=== PATIENT | male | born 1985 | race Caucasian/White ===

== ENCOUNTER 2017-10-27 06:09 | Inpatient (IN) | payer MEDICARE, MEDICAID ==
[2017-10-27] MEDS ORDERED: niCARdipine 20MG In NaCl 20 MG/200 ML BAG ONE (06:14)
[2017-10-27 06:30] LABS: #Basophils 0.1 thou/uL (0.0-0.2); #Eosinphils 0.2 thou/uL (0.0-0.7); #Lymphocytes 2.5 thou/uL (1.20-3.40); #Monocytes 0.8 thou/uL (0.11-0.59); #Neutrophils 8.9 thou/uL (1.40-6.50); %Basophils 0.7 % (0.0-1.0); %Lymphocytes 19.9 % (21.0-51.0); %Monocytes 6.3 % (0.0-10.0); %Neutrophils 71.2 % (42.0-75.0); Hemoglobin 10.4 g/dL (14.0-18.0); Mean Corpuscular HGB CONC 31.9 g/dL (32.0-36.0); Mean Corpuscular Hemoglobin 28.2 pg (27.0-31.0); Mean Corpuscular Volume 88.4 fL (78.0-98.0); Mean Platelet Volume 11.1 fL (7.4-10.4); Platelet Count 237 thou/uL (130-400); RBC Distribution Width 17.7 % (11.5-14.5); Red Blood Cell (RBC) Count 3.68 mill/uL (4.70-6.10); White Blood Cell (WBC) Count 12.5 thou/uL (4.8-10.8)
[2017-10-27 06:30] LABS: Actual Bicarbonate (HCO3a) 19.5 mEq/L (22-28); Base Excess (BEa) -8.8 mEq/L (-2.0 to +3.0); CO2 Tension 52.8 mmHg (35.0-45.0); O2 Tension (PaO2) 79.1 mmHg (80.0-100.0); pH, Arterial 7.19 (7.35-7.45)
[2017-10-27 06:31] LABS: Analyzer IN Cardio ER; Carboxyhemoglobin (COHb) 1.7 gm% (0.0-3.0); Hemoglobin (Hb) 11.3 g/dL (14.0-18.0); Puncture Site RBA
[2017-10-27 06:45] LABS: ALT (SGPT) 23 U/L (8-55); AST (SGOT) 19 U/L (5-34); Alkaline Phosphatase 87 U/L (40-150); Anion Gap 25 mmol/L (10-20); BUN (Urea Nitrogen) 84 mg/dL (8.9-20.6); Bilirubin, Total 0.6 mg/dL (0.2-1.2); Calc. Creatinine Clearance 0 mL/min (70-130); Calcium 8.5 mg/dL (7.8-10.44); Carbon Dioxide 18 mmol/L (22-29); Chloride 97 mmol/L (98-107); Estimated GFR-MDRD 3; Globulin 2.7 g/dL (2.4-3.5); Glucose 144 mg/dL (70-105); Potassium 5.3 mmol/L (3.5-5.1); Protein, Total 6.7 g/dL (6.0-8.3); Sodium 135 mmol/L (136-145)
[2017-10-27] MEDS ORDERED: Piperacillin/Tazobactam 2.25 GM VIAL ONE (06:45)
[2017-10-27] MEDS ORDERED: Ondansetron HCl/PF 4 MG/2 ML Vial IVP PRN ×2 (07:00→08:52)
[2017-10-27] MEDS ORDERED: Ondansetron ODT 4 MG TAB SL PRN (07:00)
--- NOTE | 2017-10-27 08:31 | RAD ---
CHEST ONE VIEW: HISTORY: Not provided. COMPARISON: 03/12/2003 FINDINGS: There is opacification of the right lower lobe. Additionally, there are interstitial opacities in th e left perihilar region. Heart size is upper normal. There is no significant pleural fluid. No pne umothorax. IMPRESSION: Bilateral right greater than left opacities, suggesting multifocal pneumonia. Continued surveillance to ensure resolution is recommended. POS: JULY
[2017-10-27 08:35] LABS: Troponin I 0.046 ng/mL (< 0.028)
[2017-10-27] MEDS ORDERED: Ondansetron ODT 4 MG TAB PO PRN (08:52)
[2017-10-27] MEDS ORDERED: Diabetic Tussin 200 MG/10 ML UDCUP PO PRN (08:52)
[2017-10-27] MEDS ORDERED: Senokot 8.6 MG TAB PO PRN (08:52)
[2017-10-27] MEDS ORDERED: Milk Of Magnesia 30 ML UDCUP PO PRN (08:52)
[2017-10-27] MEDS ORDERED: Zolpidem Tartrate 5 MG TAB PO PRN (08:52)
[2017-10-27] MEDS ORDERED: Eucerin (Mineral Oil/Petrolatum,White) 30 gm Jar TOP PRN (08:52)
[2017-10-27] MEDS ORDERED: Mag-Al 1200 mg/1200 mg/30 ML UDCUP PO PRN (08:52)
[2017-10-27] MEDS ORDERED: Chloraseptic Spray 180 ml Bottle PO PRN (08:52)
[2017-10-27] MEDS ORDERED: Loperamide HCl 2 MG CAP PO PRN (08:52)
[2017-10-27] MEDS ORDERED: ZOSYN IVPB PRN (08:52)
[2017-10-27] MEDS ORDERED: Artificial Tears 18 DROP/0.9 ML EA EYE PRN (08:52)
[2017-10-27] MEDS ORDERED: Acetaminophen 325 MG TAB PO PRN (08:52)
[2017-10-27] MEDS ORDERED: Sodium Chloride 0.65% Nasal 44 ML BOT EA NARE PRN (08:52)
[2017-10-27] MEDS ORDERED: Loratadine 10 MG TAB PO PRN (08:52)
[2017-10-27] MEDS ORDERED: HYDROcodone/Acetaminophen 5/325 mg Tablet PO PRN (08:52)
[2017-10-27 08:54] VITALS: BMI 21.4
--- NOTE | 2017-10-27 09:14 | HP ---
PRIMARY CARE PHYSICIAN: Dr. Jony Matute. PRIMARY INSPECTOR ELEVATORS: Dr. Robert Mendez. REASON FOR ADMISSION: Acute respiratory failure, hypertensive emergency, metabolic and respiratory acidosis. HISTORY OF PRESENT ILLNESS: A 32-year-old male who has history of hypertension, end-stage renal disease on peritoneal dialysis who was brought to emergency room by paramedics for acute onset of respiratory distress. Patient reports that about 2 weeks ago, he was released from [facility] after being treated for pneumonia for 2 weeks. He reports that initially he required admission at [facility]. He was intubated for about 1 day and he required antibiotic therapy for pneumonia. When he was released, he was feeling better. Last night around 3:00 a.m., he woke up with acute onset of shortness of breath. He was diaphoretic. He was not able to take breathe. He was having vague chest discomfort. He was having nausea and mild headache. Last night, he also initiated peritoneal dialysis. As the patient was not able to breathe and that is why his mother called 911 and subsequently the patient was brought to ER. The patient was brought to the ER with the BiPAP. Before coming to the hospital , he was given 125 mg of Solu-Medrol, 1 inch nitropatch, ketamine, 2 DuoNeb. In the emergency room, the patient was tachycardic, tachypneic, and his blood pressure initially was 245/165. He appeared in respiratory distress. Blood tests showed metabolic and respiratory acidosis. His chest x-ray showed suspected pneumonia as well as pulmonary edema. After BiPAP and the patient was given blood pressure medication, the patient started feeling better. He did not want to be intubated. When I saw this patient, at that time, his blood pressure is already started improving. He is able to talk in full sentences. He is on BiPAP. He is saturating 100% with BiPAP. He denies any fever or chills. He does have dry cough. He denies any chest pain at this point. He denies any angina, constipation, diarrhea, abdominal pain. He denies any UTI symptoms. He denies any focal motor or sensory symptoms. He denies any diplopia, blurred vision, speech problem or facial asymmetry. REVIEW OF SYSTEMS: The following complete review of systems was negative, unless otherwise mentioned in the HPI or below: Constitutional: Weight loss or gain, ability to conduct usual activities. Skin: Rash, itching. Eyes: Double vision, pain. ENT/Mouth: Nose bleeding, neck stiffness, pain, tenderness. Cardiovascular: Palpitations, dyspnea on exertion, orthopnea. Respiratory: Shortness of breath, wheezing, cough, hemoptysis, fever or night sweats. Gastrointestinal: Poor appetite, abdominal pain, heartburn, nausea, vomiting, constipation, or diarrhea. Genitourinary: Urgency, frequency, dysuria, nocturia. Musculoskeletal: Pain, swelling. Neurologic/Psychiatric: Anxiety, depression. Allergy/Immunologic: Skin rash, bleeding tendency. Please see my HPI for pertinent positive and negative. All other review of systems reviewed and negative except as mentioned in the HPI. EMERGENCY ROOM COURSE: Paramedics gave him CPAP, 125 mg of Solu-Medrol 30 mg ketamine, DuoNeb x2. In our emergency room, the patient has received vancomycin , Zosyn, Levaquin 750 mg and Cardene drip, which was subsequently discontinued. PAST MEDICAL HISTORY: ESRD on peritoneal dialysis, hypertension. PAST SURGICAL HISTORY: PD catheter placement. PAST PSYCHIATRIC HISTORY: Reviewed and negative. ALLERGIES: The patient reports that one IV blood pressure medication makes him sick, probably HYDRALAZINE. FAMILY HISTORY: Father had pancreatic cancer, which was spreaded to lung and brain. No family history of stroke or coronary artery disease. SOCIAL HISTORY: Patient lives at home with his mother. He is on disability. He denies any alcohol or other illicit drug abuse. He smokes about half-pack per day. CURRENT HOME MEDICATIONS: The patient is taking a couple of blood pressure medication, but he is not able to tell the name of medication. He says that he is taking one medication 3 times a day and two medication twice a day. Once he brings medication from home, at that time, we will review. PHYSICAL EXAMINATION: VITAL SIGNS: On arrival, blood pressure 245/165, pulse 123, respiratory rate 36 , saturation 95% on BiPAP, weight 58.9 kilograms, currently blood pressure 162/ 105, pulse 98, respiratory rate 25, temperature 97.6, saturation 100% on BiPAP. GENERAL: The patient is currently in mild respiratory distress, hypertensive, no obvious acute distress. HEENT: Head: Normocephalic, atraumatic. Eyes: Pupils round, reactive to light. Extraocular muscle intact. ENT: Oropharynx within normal limits. Moist mucous membranes, no oral lesion, no pharyngeal erythema, no exudate. NECK: Supple, no thyromegaly, no carotid bruit, no obvious JVD. LUNGS: Bibasilar rales noted. No wheezing and no respiratory muscle in use. CARDIAC: S1, S2 regular, tachycardia, no murmur, no gallop, no rub. ABDOMEN: Peritoneal dialysis catheter in place. No abdominal tenderness, no peritoneal sign, no guarding, no rigidity, no rebound, no organomegaly, no mass. GENITOURINARY: Within normal limits. BACK: Unremarkable. No CVA tenderness. EXTREMITIES: Upper extremity, passive movement of all joints are normal. Lower extremity, passive movement of all joints are normal. No edema. Good distal pulsation. SKIN: No skin rash. HEMATOLOGICAL: No lymphadenopathy. PSYCHIATRIC: Normal affect. NEUROLOGIC: Nonfocal examination. SIGNIFICANT LABORATORY DATA AND IMAGING: EKG showing sinus tachycardia, nonspecific ST-T changes. Chest x-ray reported as left lower lobe and right lower lobe pneumonia. CBC: WBC 12.5, hemoglobin 10.4, platelet 237. ABG: PH 7.19, bicarbonate 19.5, CO2 52.8, O2 79.1, saturation 91.0 on BiPAP. BMP: Sodium 135, potassium 5.3, chloride 97, carbon dioxide 18, anion gap 25, BUN 84 , creatinine 20.76, glucose 144, calcium 8.5. Lactic acid 2.0. LFT: AST 19, ALT 23, alkaline phosphatase 87, albumin 4.0. ASSESSMENT AND PLAN: 1. Acute respiratory failure with hypoxia and hypercapnia on BiPAP, currently improving. The patient will require Intensive Care Unit admission. Pulmonary group will be consulted. We will continue BiPAP and closely monitor in CCU. We will try to wean off from BiPAP as tolerated. Most likely underlying pneumonia versus early pulmonary edema contributing to this patient's respiratory distress. 2. Hypertensive emergency. Patient's blood pressure was significantly high and that was contributing to his possible pulmonary edema as well as respiratory distress. The patient's blood pressure is improved after emergency room treatment. At this point, we will continue with Cardene drip as tolerated and titrate to keep blood pressure around 140 systolic. 3. Pneumonia, suspected community acquired. Patient does not have any classic history of pneumonia, but he has leukocytosis. He was recently treated at other hospital in [place] for pneumonia for 2 weeks. At this point, Pulmonary group is consulted, for benefit of doubt, we will continue with broad spectrum antibiotic therapy with vancomycin and Zosyn as per renally adjusted dose. DuoNeb therapy will be given, Mucinex 600 mg twice daily will be given. We will check viral profile, mycoplasma urine and streptococcal urine test. We will follow up on culture result. 4. End-stage renal disease on peritoneal dialysis. We will consult Dr. Mendez for maintenance of peritoneal dialysis while in hospital. 5. Anemia of renal disease. The patient will need Procrit and Nephro-Ann tablet while in hospital. 6. Metabolic acidosis, likely due to renal failure. The patient will need peritoneal dialysis. 7. Abnormal electrolytes with hyponatremia, hyperkalemia, hypochloremia and metabolic acidosis due to renal failure. We will monitor renal function test daily while in hospital. 8. Deep venous thrombosis prophylaxis, heparin 5000 units subcu twice daily. 9. Gastrointestinal prophylaxis, Protonix 40 mg p.o. daily. CODE STATUS: The patient is FULL CODE. Patient does not have any surrogate decision maker. Disposition plan based on clinical course. We are expecting patient's stay in hospital more than 2 midnights. Plan of care discussed with the patient in detail. Total time spent providing critical care to this patient in the emergency room is 35 minutes. MTDD
[2017-10-27] MEDS ORDERED: HOLD VANCOMYCIN FOR LEVEL >20 FS SCH (09:45)
[2017-10-27] MEDS ORDERED: Vancomycin HCl 750 MG in Sodium Chloride 0.9% 250 ML 250 ML IVPB SCH (09:45)
[2017-10-27] MEDS ORDERED: Vancomycin HCl 250 MG in Sodium Chloride 0.9% 100 ML IVPB SCH (09:45)
[2017-10-27] MEDS ORDERED: Vancomycin HCl 1 GM in Premix Bag 1 BAG IVPB SCH (09:45)
[2017-10-27] MEDS ORDERED: Vancomycin Sliding Scale 1 EACH FS ONE (09:45)
[2017-10-27] MEDS ORDERED: Vancomycin HCl 500 MG in Sodium Chloride 0.9% 100 ML IVPB SCH (09:45)
[2017-10-27] MEDS: Folic Acid/Vit B Comp W-C PO SCH (09:52)
[2017-10-27] MEDS: guaiFENesin ER 600 MG TAB PO SCH ×2 (09:52→21:03)
[2017-10-27] MEDS: Heparin 5,000 UNITS/ML VIAL SC SCH ×2 (09:52→21:03)
[2017-10-27] MEDS: Saccharomyces boulardii 250 MG CAP PO SCH (09:52)
[2017-10-27 10:52] LABS: Troponin I 0.054 ng/mL (< 0.028)
--- NOTE | 2017-10-27 11:13 | CON ---
DATE OF CONSULTATION: 10/27/2017 Thirty-five minutes critical care time. CONSULTING PHYSICIAN: Dr. Crow REASON FOR CONSULTATION: Acute respiratory failure. HISTORY OF PRESENT ILLNESS: This is a 32-year-old male who presented with increasing shortness of br eath. He had severe acidosis. He was placed on BiPAP and is now breathing better. Apparently, he w as hospitalized a couple weeks ago in [place]. He was intubated for about a day, at that time, he wa s told he had pneumonia. The patient does peritoneal dialysis. He did hemodialysis in the remote past. He was noted to have a creatinine of 20 indicating that his dialysis is probably not working. He says he is comfortable on the BiPAP at this time. PAST MEDICAL HISTORY: 1. 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 2. Hypertension. PAST SURGICAL HISTORY: He has had an AV fistula placed in the past which is no longer functional. Aubrey morejon has a peritoneal dialysis catheter in place. He has previously had a right IJ tunneled catheter in place. ALLERGIES: Maybe HYDRALAZINE. FAMILY MEDICAL HISTORY: Remarkable for pancreatic cancer with metastasis. SOCIAL HISTORY: He smokes half a pack per day, he smokes marijuana. He does not drink alcohol. He lives with his brother and mother. MEDICATIONS: Prior to admission, he is not sure. PHYSICAL EXAMINATION: VITAL SIGNS: Temperature 97.7, pulse 91, blood pressure 149/97, O2 saturation 96%. GENERAL: He is resting comfortably on BiPAP, in no acute distress. HEENT: Unremarkable. NECK: No JVD. LUNGS: She has inspiratory crackles bilaterally. CARDIOVASCULAR: S1, S2 regular. ABDOMEN: PD catheter noted, slightly edematous abdomen. EXTREMITIES: No cyanosis. LABORATORY DATA: Sodium 135, potassium 4.3, chloride 97, CO2 18, BUN 84, creatinine 20, glucose 144, albumin 4.0. White blood cell count 12.5, hematocrit 32.6, platelet count 237. His chest x-ray demonstrates bilateral infiltrates, more so on the right than the left. Diaphragms l ook to be normal, heart size is enlarged. ASSESSMENT: 1. This patient likely has overt fluid overload rather than pneumonia. 2. End-stage renal disease with poor response to peritoneal dialysis. 3. Recent pneumonia by history. 4. Tobacco and marijuana abuse. RECOMMENDATIONS: 1. Continue the BiPAP. 2. Nephrology consultation. 3. Nicardipine drip as needed for blood pressure control. 4. He will likely need a temporary reinitiation of hemodialysis. 5. Discontinue antibiotics if cultures come back negative.
[2017-10-27] MEDS: Piperacillin/Tazobactam 2.25 GM in Sodium Chloride 0.9% 100 ML IVPB SCH ×2 (15:15→21:03)
[2017-10-27] MEDS: cloNIDine 0.1 MG TAB PO PRN (16:07)
[2017-10-27 19:12] LABS: BF Color Colorless; Body Fluid Source PERITONEAL FLUID; Clarity Clear (Clear); Tube # EDTA
[2017-10-27 19:13] LABS: BF RBC Count - Manual 34 /cumm; BF WBC/Nonhematics Ct. - Manua 12 /cumm
[2017-10-27 19:50] LABS: BF Segmented Neutrophils 4 %; Cell Count Non Hematic 74 %; Eosinophils 4 %; Lymphocytes 17 %
--- NOTE | 2017-10-27 23:59 | CON ---
DATE OF CONSULTATION: 10/27/2017 CONSULTING PHYSICIAN: Kimani Crow M.D. REASON FOR CONSULTATION: End-stage renal disease evaluation and care, and fluid overload. REASON FOR ADMISSION: Shortness of breath. HISTORY OF PRESENT ILLNESS: This is a 32-year-old white male with history of end-stage renal disease , hypertension, who came to the hospital with a breathing difficulty. The patient is on peritoneal d ialysis and he was started dialysis today because he thought he does not have any fluid. He started having breathing trouble and was taken to the hospital. No nausea, vomiting, no chest pain, palpitat ion. PAST MEDICAL HISTORY: Positive for end-stage renal disease and hypertension. PAST SURGICAL HISTORY: PD catheter placement. HOME MEDICATIONS: Lisinopril, clonidine, sevelamer, tizanidine. ALLERGIES: No known drug allergies. SOCIAL HISTORY: No smoking, alcohol or illicit drug abuse. FAMILY HISTORY: No history of kidney disease. REVIEW OF SYSTEMS: The following complete review of systems was negative, unless otherwise mentioned in the HPI or below: Constitutional: Weight loss or gain, ability to conduct usual activities. Sk in: Rash, itching. Eyes: Double vision, pain. ENT/Mouth: Nose bleeding, neck stiffness, pain, te nderness. Cardiovascular: Palpitations, dyspnea on exertion, orthopnea. Respiratory: Shortness of breath, wheezing, cough, hemoptysis, fever or night sweats. Gastrointestinal: Poor appetite, abdom inal pain, heartburn, nausea, vomiting, constipation, or diarrhea. Genitourinary: Urgency, frequenc y, dysuria, nocturia. Musculoskeletal: Pain, swelling. Neurologic/Psychiatric: Anxiety, depressio n. Allergy/Immunologic: Skin rash, bleeding tendency. PHYSICAL EXAMINATION: GENERAL: This is a thin-built male, in no apparent distress. VITAL SIGNS: Temperature 97.7, pulse 72, respiratory rate 18, blood pressure 131/83. HEENT: Atraumatic, normocephalic. Oral mucosa is moist. NECK: Supple, no masses. CARDIOVASCULAR: S1, S2 heard. Rate and rhythm regular. RESPIRATORY: Coarse breath sounds. GASTROINTESTINAL: Abdomen is soft. MUSCULOSKELETAL: 1+ edema. DERMATOLOGIC: No skin rash. NEUROLOGIC: Alert, awake. PSYCHIATRIC: Normal mood and affect. LABORATORY DATA: Hemoglobin is 10.4. Potassium 5.3, BUN is 84, creatinine is 20.7. ASSESSMENT AND PLAN: 1. End-stage renal disease, on peritoneal dialysis, noncompliant with dialysis. We will start on pe ritoneal dialysis to see if he can have any ultrafiltration. If not able to have ultrafiltration, we will peritoneal dialysis with fluid overload. to have hemodialysis. 2. Hyperkalemia. We will have dialysis today. 3. Metabolic acidosis secondary to renal failure. 4. Anemia of chronic kidney disease. 5. Fluid overload with pulmonary edema and shortness of breath. 6. Hypertension. Titrate medications. Remove fluid with dialysis. Plan is to start him back on dialysis few hours during daytime today and then continue his regular tr eatment over the night time and limit fluid and salt intake. Continue on renal diet. We will contin ue to follow. Continue supportive care and close monitoring. Thank you for the consult.
[2017-10-28] MEDS: Calcium Carbonate 500 MG ChewTAB PO PRN ×2 (01:09→06:17)
[2017-10-28 05:19] LABS: #Lymphocytes 1.1 thou/uL (1.20-3.40); #Monocytes 0.9 thou/uL (0.11-0.59); #Neutrophils 9.9 thou/uL (1.40-6.50); %Basophils 0.1 % (0.0-1.0); %Eosinophils 0.1 % (0.0-10.0); %Lymphocytes 9.2 % (21.0-51.0); %Monocytes 7.4 % (0.0-10.0); %Neutrophils 83.2 % (42.0-75.0); Hemoglobin 9.6 g/dL (14.0-18.0); Mean Corpuscular HGB CONC 32.8 g/dL (32.0-36.0); Mean Corpuscular Volume 88.5 fL (78.0-98.0); Mean Platelet Volume 11.3 fL (7.4-10.4); Platelet Count 217 thou/uL (130-400); RBC Distribution Width 17.7 % (11.5-14.5); White Blood Cell (WBC) Count 11.9 thou/uL (4.8-10.8)
[2017-10-28 05:22] LABS: Albumin 3.8 g/dL (3.5-5.0); Anion Gap 23 mmol/L (10-20); BUN (Urea Nitrogen) 82 mg/dL (8.9-20.6); BUN/Creatinine Ratio 4.05; Calc. Creatinine Clearance 5 mL/min (70-130); Calcium 8.8 mg/dL (7.8-10.44); Carbon Dioxide 22 mmol/L (22-29); Chloride 96 mmol/L (98-107); Estimated GFR-MDRD 3; Glucose 192 mg/dL (70-105); Phosphorus 7.9 mg/dL (2.3-4.7); Potassium 4.2 mmol/L (3.5-5.1); Sodium 137 mmol/L (136-145)
[2017-10-28] MEDS: Piperacillin/Tazobactam 2.25 GM in Sodium Chloride 0.9% 100 ML IVPB SCH ×3 (06:09→20:31)
--- NOTE | 2017-10-28 08:35 | PRG ---
DATE OF SERVICE: 10/28/2017 He feels better. He has been weaned off the BiPAP and is totally off oxygen at this point, he is sti ll requiring a nicardipine drip, but that is probably because his oral medications have not been rest arted. PHYSICAL EXAMINATION: VITAL SIGNS: On exam his temperature is 98, pulse 106, blood pressure 167/101, sat 94%, 24 hour inta ke 1345, output 700 +4 about liters through peritoneal dialysis. HEENT: Unremarkable. NECK: No JVD. LUNGS: Clear anteriorly. CARDIOVASCULAR: S1 and S2 regular. ABDOMEN: Softer. EXTREMITIES: No edema. LABORATORY DATA: White blood cell count 11.9, hematocrit 29.2, platelet count 217. Sodium 137, pota ssium 4.2, chloride 96, CO2 22, BUN 82, creatinine 20.2, glucose 192. ASSESSMENT: 1. Hypoxic respiratory failure, which was likely secondary to pulmonary edema from fluid overload. 2. Renal failure - under dialyzed with peritoneal dialysis. 3. Recent pneumonia by history. PLAN: 1. Can likely stop antibiotics if cultures come back negative tomorrow. 2. Restart oral antihypertensives. 3. If able to wean off nicardipine drip today, then he can be transferred out to the floor. 4. No longer needs BiPAP.
[2017-10-28] MEDS: Ferrous Sulfate 325 MG TAB PO SCH (08:44)
[2017-10-28] MEDS: Heparin 5,000 UNITS/ML VIAL SC SCH ×2 (08:45→20:30)
[2017-10-28] MEDS: Lisinopril 20 MG TAB PO SCH (08:45)
[2017-10-28] MEDS: Folic Acid/Vit B Comp W-C PO SCH (08:45)
[2017-10-28] MEDS: guaiFENesin ER 600 MG TAB PO SCH ×2 (08:45→20:30)
[2017-10-28] MEDS: cloNIDine 0.1 MG TAB PO SCH ×3 (08:45→20:27)
[2017-10-28] MEDS: Saccharomyces boulardii 250 MG CAP PO SCH (08:46)
[2017-10-28] MEDS: Metoprolol Tartrate 25 MG TAB PO SCH ×2 (08:46→20:30)
[2017-10-28] MEDS: tiZANidine HCl 4 MG TAB PO SCH ×2 (08:46→20:26)
[2017-10-28] MEDS ORDERED: Calcium Carbonate 500 MG ChewTAB PO SCH (09:00)
[2017-10-28] MEDS ORDERED: Prevnar 13-Val Conj/PF 0.5 ML SYRINGE IM ONE (09:00)
[2017-10-28] MEDS ORDERED: Sevelamer Carbonate 800 MG TAB PO SCH (09:00)
--- NOTE | 2017-10-28 10:28 | PRG ---
Patient Name: BELLA HART Date of service: 10/28/2017 Subjective: Patient was seen and examined at bedside and overnight events noted. Patient denies any shortness of breath or chest pain or palpitation. No history of nausea or vomiting or diarrhea or fever or chills or cramps. Objective: General: This is a well-built male in no apparent distress. Vital signs: Temperature 98.3, pulse 105, respiratory 18, blood pressure 153/90. HEENT: Atraumatic, normocephalic. Oral mucosa is moist. Neck: Supple. Cardiovascular: S1 S2 heard. Rate and rhythm regular. Respiratory: Clear to auscultation Gastrointestinal: Abdomen is soft. Musculoskeletal: No tenderness. 1+ edema. Dermatologic: No skin rash. Neurologic: Alert and awake and oriented X3. No focal neurologic deficits. Moving all the extremit ies. Psychiatric: Mood and affect normal. LABORATORY DATA: Potassium 4.2, BUN 82, creatinine 20.2. ASSESSMENT AND PLAN: 1. End-stage renal disease on peritoneal dialysis, getting better. The patient's fluid overload is better. 2. Fluid overload, pulmonary edema and acute hypoxic respiratory failure, better. 3. Noncompliance with dialysis. The patient was advised to have regular sessions and limit fluid an d salt intake. 4. Hyperkalemia, better. 5. Metabolic acidosis, better. 6. Hypertension. Titrate medications. Start oral medications and titrate as needed. 7. Limit salt and fluid intake. The patient was advised to be compliant with peritoneal dialysis se ssions and fluid overload seems to be better. We will continue on peritoneal dialysis as tolerated p er his home regimen.
[2017-10-28] MEDS: Sevelamer Carbonate 800 MG TAB PO SCH ×2 (11:31→17:53)
--- NOTE | 2017-10-28 11:53 | PDOC.PN ---
- Subjective Encounter Start Date: 10/28/17 Encounter Start Time: 10:00 -: old records requested/rev pt is doing well, off bipap, BP controlled, Patient seen and examined. No new complaints. - Objective Resuscitation Status: Resuscitation Status FULL:Full Resuscitation MAR Reviewed: Yes Vital Signs & Weight: Vital Signs (12 hours) Temp BP Pulse Ox 10/28/17 08:45 177/99 H 10/28/17 08:00 98.3 F 97 10/28/17 03:00 98 F 10/28/17 00:00 96 Weight Weight 136 lb 7.458 oz Most Recent Monitor Data Heart Rate from ECG 93 NIBP 145/86 NIBP BP-Mean 105 Respiration from ECG 12 SpO2 96 I&O: 10/27/17 10/28/17 10/29/17 06:59 06:59 06:59 Intake Total 1345 600 Output Total 71 500 Balance 1274 100 Result Diagrams: 10/28/17 04:48 10/28/17 04:48 EKG Reviewed by me: Yes (nsr) Phys Exam - Physical Examination Constitutional: NAD HEENT: PERRLA, moist MMs, sclera anicteric Neck: no JVD, supple Respiratory: no wheezing, no rales, no rhonchi Cardiovascular: RRR, no significant murmur, no rub Gastrointestinal: soft, non-tender, no distention, positive bowel sounds PD catheter in place Musculoskeletal: no edema, pulses present Neurological: non-focal, normal sensation, moves all 4 limbs Psychiatric: normal affect, A&O x 3 Skin: no rash, normal turgor Dx/Plan (1) Acute respiratory failure with hypoxia Code(s): J96.01 - ACUTE RESPIRATORY FAILURE WITH HYPOXIA Status: Resolved (2) Abnormal blood electrolyte level Code(s): E87.8 - OTH DISORDERS OF ELECTROLYTE AND FLUID BALANCE, NEC Status: Acute Comment: due to ESRD (3) Metabolic acidosis Code(s): E87.2 - ACIDOSIS Status: Acute Comment: due to ESRD (4) Pneumonia Code(s): J18.9 - PNEUMONIA, UNSPECIFIED ORGANISM Status: Suspected (5) Anemia of renal disease Code(s): D63.1 - ANEMIA IN CHRONIC KIDNEY DISEASE Status: Chronic (6) ESRD on peritoneal dialysis Code(s): N18.6 - END STAGE RENAL DISEASE; Z99.2 - DEPENDENCE ON RENAL DIALYSIS Status: Chronic (7) Hypertension Code(s): I10 - ESSENTIAL (PRIMARY) HYPERTENSION Status: Chronic (8) Secondary hyperparathyroidism of renal origin Code(s): N25.81 - SECONDARY HYPERPARATHYROIDISM OF RENAL ORIGIN Status: Chronic (9) Volume overload Code(s): E87.70 - FLUID OVERLOAD, UNSPECIFIED Status: Resolved (10) Noncompliance with renal dialysis Code(s): Z91.15 - PATIENT'S NONCOMPLIANCE WITH RENAL DIALYSIS Status: Chronic - Plan cont current plan of care, continue antibiotics * continue zosyn today and if culture negative will dc * dc vancomycin * continue PD as per nephrology * restart his home medication and wean off cardene drip and then will transfer to medical floor * medication reviewed as below * symptomatic treatment. Review of Systems - Review of Systems Eyes: negative: Pain, Vision Change, Conjunctivae Inflammation, Eyelid Inflammation, Redness, Other ENT: negative: Ear Pain, Ear Discharge, Nose Pain, Nose Discharge, Nose Congestion, Mouth Pain, Mouth Swelling, Throat Pain, Throat Swelling, Other Respiratory: negative: Cough, Dry, Shortness of Breath, Hemoptysis, SOB with Excertion, Pleuritic Pain, Sputum, Wheezing Cardiovascular: negative: chest pain, palpitations, orthopnea, paroxysmal nocturnal dyspnea, edema, light headedness, other Gastrointestinal: negative: Nausea, Vomiting, Abdominal Pain, Diarrhea, Constipation, Melena, Hematochezia, Other Genitourinary: negative: Dysuria, Frequency, Incontinence, Hematuria, Retention , Other Musculoskeletal: negative: Neck Pain, Shoulder Pain, Arm Pain, Back Pain, Hand Pain, Leg Pain, Foot Pain, Other Skin: negative: Rash, Lesions, David, Bruising, Other - Medications/Allergies Allergies/Adverse Reactions: Allergies Allergy/AdvReac Type Severity Reaction Status Date / Time No Known Allergies Allergy Verified 10/27/17 09:00 Medications: Current Medications Acetaminophen (Tylenol) 650 mg PO Q4H PRN PRN Reason: Headache/Fever or Pain Hydrocodone Bitart/Acetaminophen ([place] 5/325) 1 tab PO Q4H PRN PRN Reason: Moderate Pain (4-6) Al Hydroxide/Mg Hydroxide (Maalox) 30 ml PO Q6H PRN PRN Reason: Heartburn or Indigestion Last Admin: 10/27/17 21:20 Dose: 30 ml Albuterol/Ipratropium (Duoneb) 3 ml NEB Q4H PRN PRN Reason: SOB &/or Wheezing Artificial Tears (Tears Naturale) 0 drop EA EYE PRN PRN PRN Reason: Dry Eyes Calcium Carbonate (Tums) 1,000 mg PO Q4H PRN PRN Reason: Indigestion Last Admin: 10/28/17 06:17 Dose: 1,000 mg Calcium Carbonate (Tums) 1,000 mg PO TID [facility] Last Admin: 10/28/17 08:58 Dose: 1,000 mg Clonidine (Catapres) 0.1 mg PO Q4H PRN PRN Reason: Systolic BP > 180 Last Admin: 10/27/17 16:07 Dose: 0.1 mg Clonidine (Catapres) 0.1 mg PO TID [facility] Last Admin: 10/28/17 08:45 Dose: 0.1 mg Epoetin Bin (Procrit) 7,500 units SC Q7D [facility] Ferrous Sulfate (Feosol) 325 mg PO [facility] Last Admin: 10/28/17 08:44 Dose: 325 mg Guaifenesin (Mucinex) 600 mg PO Q12HR [facility] Last Admin: 10/28/17 08:45 Dose: 600 mg Guaifenesin (Robitussin Sf) 200 mg PO Q4H PRN PRN Reason: Cough Heparin Sodium (Porcine) (Heparin) 5,000 units SC BID [facility] Last Admin: 10/28/17 08:45 Dose: 5,000 units Piperacillin Sod/Tazobactam (Sod 2.25 gm/ Sodium Chloride) 100 mls @ 200 mls/ hr IVPB Q8HR [facility] Last Admin: 10/28/17 06:09 Dose: 100 mls Labetalol HCl (Normodyne) 20 mg SLOW IVP Q4H PRN PRN Reason: Systolic BP > 180 Lisinopril (Zestril) 20 mg PO DAILY [facility] Last Admin: 10/28/17 08:45 Dose: 20 mg Loperamide HCl (Imodium) 2 mg PO PRN PRN PRN Reason: Diarrhea/Loose Stools Loratadine (Claritin) 10 mg PO DAILYPRN PRN PRN Reason: Sinus Symptoms Magnesium Hydroxide (Milk Of Magnesium) 30 ml PO DAILYPRN PRN PRN Reason: Constipation Metoprolol Tartrate (Lopressor) 12.5 mg PO BID [facility] Last Admin: 10/28/17 08:46 Dose: 12.5 mg Mineral Oil/White Petrolatum (Eucerin Cream) 0 gm TOP BIDPRN PRN PRN Reason: Dry Skin Miscellaneous Medication (Pharmacy To Dose) 1 each IVPB PRN PRN PRN Reason: Pharmacy to dose Hold Vancomycin For (Level >20) 0 each FS .AT DIALYSIS [facility] Ondansetron HCl (Zofran Odt) 4 mg PO Q6H PRN PRN Reason: Nausea/Vomiting Ondansetron HCl (Zofran) 4 mg IVP Q6H PRN PRN Reason: Nausea/Vomiting Last Admin: 10/28/17 08:46 Dose: 4 mg Phenol (Chloraseptic [place] 180 Ml Bot) 0 ml PO PRN PRN PRN Reason: Sore Throat Saccharomyces Boulardii (Florastor) 250 mg PO DAILY [facility] Last Admin: 10/28/17 08:46 Dose: 250 mg Senna (Senokot) 2 tab PO HSPRN PRN PRN Reason: Constipation Sevelamer Carbonate (Renvela) 800 mg PO TID-[facility] Last Admin: 10/28/17 11:31 Dose: 800 mg Sodium Chloride ([place] Nasal [place] 0.65%) 0 ml EA NARE QIDPRN PRN PRN Reason: Nasal Congestion Tizanidine HCl (Zanaflex) 4 mg PO BID [facility] Last Admin: 10/28/17 08:46 Dose: 4 mg Vitamin B Complex/Vit C/Folic Acid (Nephro-Ann Tablet) 1 tab PO DAILY [facility] Last Admin: 10/28/17 08:45 Dose: 1 tab Zolpidem Tartrate (Ambien) 5 mg PO HSPRN PRN PRN Reason: Insomnia
[2017-10-28] MEDS ORDERED: Epoetin (ESRD) 20,000 UNITS/ML SC SCH (12:00)
[2017-10-28] MEDS: Calcium Carbonate 500 MG ChewTAB PO SCH (17:53)
[2017-10-28] MEDS ORDERED: hydrALAZINE 20 MG/ML VIAL SLOW IVP PRN (23:10)
[2017-10-28] MEDS: Labetalol HCl 100 MG/20 ML VIAL SLOW IVP PRN (23:55)
[2017-10-29 04:51] LABS: #Basophils 0.1 thou/uL (0.0-0.2); #Eosinphils 0.1 thou/uL (0.0-0.7); #Lymphocytes 1.7 thou/uL (1.20-3.40); #Monocytes 0.9 thou/uL (0.11-0.59); #Neutrophils 7.1 thou/uL (1.40-6.50); %Basophils 0.9 % (0.0-1.0); %Eosinophils 1.4 % (0.0-10.0); %Lymphocytes 16.6 % (21.0-51.0); %Monocytes 9.4 % (0.0-10.0); %Neutrophils 71.6 % (42.0-75.0); Hemoglobin 9.1 g/dL (14.0-18.0); Mean Corpuscular HGB CONC 32.1 g/dL (32.0-36.0); Mean Corpuscular Hemoglobin 28.7 pg (27.0-31.0); Mean Corpuscular Volume 89.3 fL (78.0-98.0); Mean Platelet Volume 10.5 fL (7.4-10.4); Platelet Count 195 thou/uL (130-400); RBC Distribution Width 17.9 % (11.5-14.5); Red Blood Cell (RBC) Count 3.18 mill/uL (4.70-6.10); White Blood Cell (WBC) Count 9.9 thou/uL (4.8-10.8)
[2017-10-29] MEDS: Labetalol HCl 100 MG/20 ML VIAL SLOW IVP PRN ×3 (04:52→22:15)
[2017-10-29 05:03] LABS: Anion Gap 23 mmol/L (10-20); BUN (Urea Nitrogen) 72 mg/dL (8.9-20.6); Calc. Creatinine Clearance 5 mL/min (70-130); Calcium 8.9 mg/dL (7.8-10.44); Carbon Dioxide 22 mmol/L (22-29); Chloride 101 mmol/L (98-107); Estimated GFR-MDRD 3; Glucose 102 mg/dL (70-105); Sodium 141 mmol/L (136-145)
[2017-10-29] MEDS: Piperacillin/Tazobactam 2.25 GM in Sodium Chloride 0.9% 100 ML IVPB SCH (05:39)
[2017-10-29] MEDS: Lisinopril 20 MG TAB PO SCH (08:04)
[2017-10-29] MEDS: Sevelamer Carbonate 800 MG TAB PO SCH ×3 (08:04→17:10)
[2017-10-29] MEDS: Calcium Carbonate 500 MG ChewTAB PO SCH ×3 (08:04→17:10)
[2017-10-29] MEDS: tiZANidine HCl 4 MG TAB PO SCH ×2 (08:05→20:23)
[2017-10-29] MEDS: Carvedilol 6.25 MG TAB PO SCH ×2 (08:05→17:10)
[2017-10-29] MEDS: Saccharomyces boulardii 250 MG CAP PO SCH (08:05)
[2017-10-29] MEDS: Folic Acid/Vit B Comp W-C PO SCH (08:05)
[2017-10-29] MEDS: Ferrous Sulfate 325 MG TAB PO SCH (08:05)
[2017-10-29] MEDS: cloNIDine 0.1 MG TAB PO SCH ×3 (08:05→20:23)
[2017-10-29] MEDS: guaiFENesin ER 600 MG TAB PO SCH ×2 (08:06→20:23)
--- NOTE | 2017-10-29 08:50 | PRG ---
DATE OF SERVICE: 10/29/2017 The patient is doing well, has no complaints. PHYSICAL EXAMINATION: VITAL SIGNS: Temperature 98.5, pulse 96, respirations 23, blood pressure resting at 210/138. Althou gh it looks like his blood pressure the last 4-5 times so that is probably an error, 24 intake 960, o utput 500. HEENT: Unremarkable. NECK: No JVD. LUNGS: Clear to auscultation. ABDOMEN: Slightly distended. EXTREMITIES: No edema. LABORATORY DATA: White blood cell count 9.9, hematocrit 28.4, platelet count 195. Sodium 141, potas sium 5, chloride 101, CO2 22, BUN 72, creatinine 18, glucose 102. ASSESSMENT: 1. Chronic renal failure. 2. Malignant hypertension. PLAN: Continue peritoneal dialysis. His antihypertensives were restarted yesterday. For some reaso n, someone has canceled my order for metoprolol. I will leave hypertensive management up to the Hosp italist. We will sign off. Please recall if further assistance needed.
[2017-10-29] MEDS ORDERED: NIFEdipine XL 30 MG TAB PO SCH (09:00)
[2017-10-29] MEDS: Heparin 5,000 UNITS/ML VIAL SC SCH ×2 (09:46→20:23)
--- NOTE | 2017-10-29 10:15 | RAD ---
CHEST 2 VIEWS: COMPARISON: 03/12/03, 10/27/17. FINDINGS: Slight elongation of the aorta. Normal cardiac silhouette. The pulmonary vessels and hilum are norm al. Costophrenic angles are clear. No consolidation or mass. Chronic changes, without consolidatio n. No pneumothorax or osseous abnormalities. IMPRESSION: No acute cardiopulmonary process. POS: [facility]
--- NOTE | 2017-10-29 10:57 | PRG ---
Patient Name: BELLA HART Date of service: 10/29/2017 Subjective: Patient was seen and examined at bedside and overnight events noted. Patient denies any shortness of breath or chest pain or palpitation. No history of nausea or vomiting or diarrhea or fever or chills or cramps. Objective: General: This is a thin-built white male in no apparent distress. Vital signs: Temperature 98.5, pulse 96, respiratory rate 18, blood pressure 167/105. HEENT: Atraumatic, normocephalic. Oral mucosa is moist. Neck: Supple. Cardiovascular: S1 S2 heard. Rate and rhythm regular. Respiratory: Clear to auscultation. Gastrointestinal: Abdomen is soft. Musculoskeletal: No tenderness. No edema. Dermatologic: No skin rash. Neurologic: Alert and awake and oriented X3. No focal neurologic deficits. Moving all the extremit ies. Psychiatric: Mood and affect normal. LABORATORY DATA: Potassium 5.0, BUN 72, creatinine is 18.4. ASSESSMENT AND PLAN: 1. End-stage renal disease on peritoneal dialysis. We will continue on dialysis. Seems like noncom pliance is a big part. Counseled again. 2. Fluid overload, better. 3. Noncompliance. Advised to be compliant with his dialysis sessions. 4. Hyperkalemia, stable. 5. Metabolic acidosis. 6. Hypertension. Agree with adding Procardia and titrate as needed. 7. Limit fluid and salt intake. Continue IV dialysis per schedule.
--- NOTE | 2017-10-29 11:21 | PDOC.PN ---
- Subjective Encounter Start Date: 10/29/17 Encounter Start Time: 08:30 Patient seen and examined. No new complaints. No overnight events - Objective Resuscitation Status: Resuscitation Status FULL:Full Resuscitation MAR Reviewed: Yes Vital Signs & Weight: Vital Signs (12 hours) Temp Pulse Resp BP BP Pulse Ox 10/29/17 09:45 167/105 H 10/29/17 08:06 96 210/138 H 10/29/17 08:05 210/138 H 10/29/17 08:04 210/138 H 10/29/17 07:36 98.5 F 96 23 H 210/138 H 93 L 10/29/17 04:52 92 195/123 H 10/29/17 04:08 98.0 F 89 16 195/123 H 95 10/29/17 00:42 98.0 F 92 16 175/110 H 95 10/28/17 23:55 81 180/118 H Weight Admit Weight 136 lb Weight 136 lb 7.458 oz Most Recent Monitor Data Heart Rate from ECG 89 NIBP 154/94 NIBP BP-Mean 114 Respiration from ECG 17 SpO2 96 I&O: 10/28/17 10/29/17 10/30/17 06:59 06:59 06:59 Intake Total 1345 960 Output Total 71 500 Balance 1274 460 Result Diagrams: 10/29/17 04:35 10/29/17 04:35 Radiology Reviewed by me: Yes (chest xray reviewed) Phys Exam - Physical Examination Constitutional: NAD HEENT: PERRLA, moist MMs, sclera anicteric Neck: no JVD, supple Respiratory: no wheezing, no rales, no rhonchi Cardiovascular: RRR, no significant murmur, no rub Gastrointestinal: soft, non-tender, no distention, positive bowel sounds PD catheter+ Musculoskeletal: no edema, pulses present Neurological: non-focal, normal sensation, moves all 4 limbs Psychiatric: normal affect, A&O x 3 Skin: no rash, normal turgor Dx/Plan (1) Acute respiratory failure with hypoxia Code(s): J96.01 - ACUTE RESPIRATORY FAILURE WITH HYPOXIA Status: Resolved (2) Abnormal blood electrolyte level Code(s): E87.8 - OTH DISORDERS OF ELECTROLYTE AND FLUID BALANCE, NEC Status: Acute Comment: due to ESRD (3) Metabolic acidosis Code(s): E87.2 - ACIDOSIS Status: Acute Comment: due to ESRD (4) Pneumonia Code(s): J18.9 - PNEUMONIA, UNSPECIFIED ORGANISM Status: Suspected (5) Anemia of renal disease Code(s): D63.1 - ANEMIA IN CHRONIC KIDNEY DISEASE Status: Chronic (6) ESRD on peritoneal dialysis Code(s): N18.6 - END STAGE RENAL DISEASE; Z99.2 - DEPENDENCE ON RENAL DIALYSIS Status: Chronic (7) Hypertension Code(s): I10 - ESSENTIAL (PRIMARY) HYPERTENSION Status: Chronic (8) Secondary hyperparathyroidism of renal origin Code(s): N25.81 - SECONDARY HYPERPARATHYROIDISM OF RENAL ORIGIN Status: Chronic (9) Volume overload Code(s): E87.70 - FLUID OVERLOAD, UNSPECIFIED Status: Resolved (10) Noncompliance with renal dialysis Code(s): Z91.15 - PATIENT'S NONCOMPLIANCE WITH RENAL DIALYSIS Status: Chronic - Plan cont current plan of care, continue antibiotics * as pt's BP is very high, will make some change in BP meds, metoprolol has less BP effect, so will change to coreg which has better antihypertensive effect * will add procardia xl 30 mg po daily * continue other BP meds as ordered * will dc zoyn and change to po levaquin per renal dose * medication reviewed as below * symptomatic treatment * expecting discharge soon once better BP control. Review of Systems - Review of Systems ENT: negative: Ear Pain, Ear Discharge, Nose Pain, Nose Discharge, Nose Congestion, Mouth Pain, Mouth Swelling, Throat Pain, Throat Swelling, Other Respiratory: negative: Cough, Dry, Shortness of Breath, Hemoptysis, SOB with Excertion, Pleuritic Pain, Sputum, Wheezing Cardiovascular: negative: chest pain, palpitations, orthopnea, paroxysmal nocturnal dyspnea, edema, light headedness, other Gastrointestinal: negative: Nausea, Vomiting, Abdominal Pain, Diarrhea, Constipation, Melena, Hematochezia, Other Genitourinary: negative: Dysuria, Frequency, Incontinence, Hematuria, Retention , Other Musculoskeletal: negative: Neck Pain, Shoulder Pain, Arm Pain, Back Pain, Hand Pain, Leg Pain, Foot Pain, Other Skin: negative: Rash, Lesions, David, Bruising, Other - Medications/Allergies Allergies/Adverse Reactions: Allergies Allergy/AdvReac Type Severity Reaction Status Date / Time melon Allergy Verified 09/20/18 12:45 Medications: Current Medications Acetaminophen (Tylenol) 650 mg PO Q4H PRN PRN Reason: Headache/Fever or Pain Hydrocodone Bitart/Acetaminophen ([place] 5/325) 1 tab PO Q4H PRN PRN Reason: Moderate Pain (4-6) Al Hydroxide/Mg Hydroxide (Maalox) 30 ml PO Q6H PRN PRN Reason: Heartburn or Indigestion Last Admin: 10/27/17 21:20 Dose: 30 ml Albuterol/Ipratropium (Duoneb) 3 ml NEB Q4H PRN PRN Reason: SOB &/or Wheezing Artificial Tears (Tears Naturale) 0 drop EA EYE PRN PRN PRN Reason: Dry Eyes Calcium Carbonate (Tums) 1,000 mg PO Q4H PRN PRN Reason: Indigestion Last Admin: 10/28/17 06:17 Dose: 1,000 mg Calcium Carbonate (Tums) 1,000 mg PO TID[facility] Last Admin: 10/29/17 08:04 Dose: 1,000 mg Carvedilol (Coreg) 12.5 mg PO BID[facility] Last Admin: 10/29/17 08:05 Dose: 12.5 mg Clonidine (Catapres) 0.1 mg PO Q4H PRN PRN Reason: Systolic BP > 180 Last Admin: 10/27/17 16:07 Dose: 0.1 mg Clonidine (Catapres) 0.1 mg PO TID [facility] Last Admin: 10/29/17 08:05 Dose: 0.1 mg Epoetin Bin (Procrit) 7,500 units SC Q7D [facility] Last Admin: 10/28/17 12:20 Dose: 7,500 units Ferrous Sulfate (Feosol) 325 mg PO QAM-[facility] Last Admin: 10/29/17 08:05 Dose: 325 mg Guaifenesin (Mucinex) 600 mg PO Q12HR [facility] Last Admin: 10/29/17 08:06 Dose: 600 mg Guaifenesin (Robitussin Sf) 200 mg PO Q4H PRN PRN Reason: Cough Heparin Sodium (Porcine) (Heparin) 5,000 units SC BID [facility] Last Admin: 10/29/17 09:46 Dose: 5,000 units Piperacillin Sod/Tazobactam (Sod 2.25 gm/ Sodium Chloride) 100 mls @ 200 mls/ hr IVPB Q8HR [facility] Last Admin: 10/29/17 05:39 Dose: 100 mls Labetalol HCl (Normodyne) 20 mg SLOW IVP Q4H PRN PRN Reason: Systolic BP > 180 Last Admin: 10/29/17 04:52 Dose: 20 mg Lisinopril (Zestril) 20 mg PO DAILY [facility] Last Admin: 10/29/17 08:04 Dose: 20 mg Loperamide HCl (Imodium) 2 mg PO PRN PRN PRN Reason: Diarrhea/Loose Stools Loratadine (Claritin) 10 mg PO DAILYPRN PRN PRN Reason: Sinus Symptoms Magnesium Hydroxide (Milk Of Magnesium) 30 ml PO DAILYPRN PRN PRN Reason: Constipation Mineral Oil/White Petrolatum (Eucerin Cream) 0 gm TOP BIDPRN PRN PRN Reason: Dry Skin Miscellaneous Medication (Pharmacy To Dose) 1 each IVPB PRN PRN PRN Reason: Pharmacy to dose Nifedipine (Procardia Xl) 30 mg PO DAILY [facility] Last Admin: 10/29/17 08:06 Dose: 30 mg Ondansetron HCl (Zofran Odt) 4 mg PO Q6H PRN PRN Reason: Nausea/Vomiting Ondansetron HCl (Zofran) 4 mg IVP Q6H PRN PRN Reason: Nausea/Vomiting Last Admin: 10/28/17 08:46 Dose: 4 mg Phenol (Chloraseptic [place] 180 Ml Bot) 0 ml PO PRN PRN PRN Reason: Sore Throat Saccharomyces Boulardii (Florastor) 250 mg PO DAILY [facility] Last Admin: 10/29/17 08:05 Dose: 250 mg Senna (Senokot) 2 tab PO HSPRN PRN PRN Reason: Constipation Sevelamer Carbonate (Renvela) 800 mg PO TID[facility] Last Admin: 10/29/17 08:04 Dose: 800 mg Sodium Chloride ([place] Nasal [place] 0.65%) 0 ml EA NARE QIDPRN PRN PRN Reason: Nasal Congestion Tizanidine HCl (Zanaflex) 4 mg PO BID [facility] Last Admin: 10/29/17 08:05 Dose: 4 mg Vitamin B Complex/Vit C/Folic Acid (Nephro-Ann Tablet) 1 tab PO DAILY [facility] Last Admin: 10/29/17 08:05 Dose: 1 tab Zolpidem Tartrate (Ambien) 5 mg PO HSPRN PRN PRN Reason: Insomnia
[2017-10-29] MEDS: cloNIDine 0.1 MG TAB PO PRN ×2 (12:32→21:20)
[2017-10-29] MEDS: Calcium Carbonate 500 MG ChewTAB PO PRN (20:18)
[2017-10-30] MEDS: cloNIDine 0.1 MG TAB PO PRN ×2 (05:13→11:59)
[2017-10-30] MEDS: Labetalol HCl 100 MG/20 ML VIAL SLOW IVP PRN ×2 (06:05→11:26)
[2017-10-30] MEDS ORDERED: Carvedilol 25 MG TAB PO SCH (08:00)
[2017-10-30] MEDS: guaiFENesin ER 600 MG TAB PO SCH (08:33)
[2017-10-30] MEDS: cloNIDine 0.1 MG TAB PO SCH (08:33)
[2017-10-30] MEDS: Lisinopril 20 MG TAB PO SCH (08:33)
[2017-10-30] MEDS: Sevelamer Carbonate 800 MG TAB PO SCH ×2 (08:33→13:45)
[2017-10-30] MEDS: Folic Acid/Vit B Comp W-C PO SCH (08:33)
[2017-10-30] MEDS: Calcium Carbonate 500 MG ChewTAB PO SCH ×2 (08:33→13:45)
[2017-10-30] MEDS: Heparin 5,000 UNITS/ML VIAL SC SCH (08:34)
[2017-10-30] MEDS: tiZANidine HCl 4 MG TAB PO SCH (08:34)
[2017-10-30] MEDS: Ferrous Sulfate 325 MG TAB PO SCH (08:34)
[2017-10-30] MEDS: Saccharomyces boulardii 250 MG CAP PO SCH (08:34)
[2017-10-30] MEDS ORDERED: NIFEdipine XL 60 MG TAB PO SCH (09:00)
--- NOTE | 2017-10-30 09:38 | DIS ---
DATE OF ADMISSION: 10/27/2017 DATE OF DISCHARGE: 10/30/2017 PRIMARY CARE PHYSICIAN: Dr. Jony Matute. DISCHARGE DISPOSITION: Home. PRIMARY DISCHARGE DIAGNOSES: 1. Acute respiratory failure with hypoxia, improved, volume overload. 2. Pneumonia, suspected. 3. Abnormal blood electrolytes level due to end-stage renal disease, metabolic acidosis. SECONDARY DISCHARGE DIAGNOSES: Noncompliance with renal dialysis, hypertension, end-stage renal dise ase on peritoneal dialysis, secondary hyperparathyroidism of renal origin, anemia of renal disease. PRIMARY PROCEDURE AND OPERATION: Peritoneal dialysis while in hospital. RADIOLOGICAL INVESTIGATION: Chest x-ray showed pulmonary edema/multifocal infiltration. Repeat ches t x-ray showed no acute cardiopulmonary process. SIGNIFICANT LABORATORY DATA: WBC 9.9, hemoglobin 9.1, platelet 195. Sodium 141, potassium 5.0, BUN 72, creatinine 18.45, calcium 8.9, troponin 0.054. Peritoneal fluid was negative for any infection. Blood culture negative. DISCHARGE MEDICATIONS: Tums 1 gram p.o. t.i.d., Soma 250 mg p.o. at bedtime, clonidine 0.1 mg p.o. t .i.d., lisinopril 20 mg p.o. daily, Renvela 800 mg p.o. t.i.d., Zanaflex 4 mg p.o. b.i.d., Levaquin 5 00 mg every other day for 3 tablets, Coreg 25 mg p.o. b.i.d., ferrous sulfate 325 mg p.o. daily, Neph ro-Ann 1 tablet p.o. daily, Procardia-XL 60 mg p.o. daily. CONTRAINDICATIONS: None. CODE STATUS: FULL CODE. INPATIENT CONSULTANTS: Dr. Means was consulted while in hospital. Dr. Ahumada was following for p eritoneal dialysis. TEST RESULTS PENDING ON DISCHARGE: None. ALLERGIES: No known drug allergy. DISCHARGE PLAN: Post hospital, the patient will follow up with primary care physician. The patient will follow up with Dr. Ahumada for peritoneal dialysis. HOSPITAL COURSE: A 32-year-old male with above-mentioned medical problem who was brought to emergenc y room for acute onset of shortness of breath. He was hypertensive as well as his clinical presentat ion was consistent with pulmonary edema. The patient required BiPAP. He was improving with that and he was admitted to ICU. Pulmonary group was consulted. This patient did not require intubation. I nitially, we also suspected pneumonia and that is why he was given broad spectrum antibiotic therapy, but his chest x-ray significantly improved with dialysis and that is why our doubt for pneumonia was little. We discontinued vancomycin. We discontinued Zosyn and changed to Levaquin for another 3 ta blets upon discharge. During this admission, the patient's blood pressure was remaining very high an d that is why we did necessary modification in his medications. We discontinued metoprolol and start ed Coreg and we added Procardia-XL. With this patient, blood pressure was marginally well corrected. The patient's leukocytosis improved. His metabolic acidosis improved. His abnormal electrolytes w ere corrected. The patient was transferred to the medical floor where he remained stable. He is on room air. The patient is seen and examined at bedside today. All review of system reviewed with him and negati ve. PHYSICAL EXAMINATION: VITAL SIGNS: Currently, temperature 98.2, pulse 90, respiratory rate 18, saturation 97% on room air, blood pressure 180/109. Weight 136 pounds. GENERAL: The patient is currently alert, awake, no obvious acute distress. HEAD: Normocephalic, atraumatic. EYES: Pupils round, reactive to light. Extraocular muscle intact. ENT: Oropharynx within normal limits. Moist mucous membranes. No oral lesion, no pharyngeal erythe ma, no exudate. NECK: Supple. No JVD. LUNGS: Clear to auscultation without any rhonchi or rales. CARDIAC: S1, S2 regular without any murmur. ABDOMEN: Soft and benign without any tenderness. EXTREMITIES: No edema. NEUROLOGIC: Nonfocal examination. GENITOURINARY: Peritoneal dialysis catheter in place without any tenderness. Overall, the patient is medically stable for discharge today.
--- NOTE | 2017-10-30 10:21 | PDOC.PN ---
- Subjective Encounter Start Date: 10/30/17 Encounter Start Time: 09:40 Patient seen and examined. No new complaints. No overnight events - Objective Resuscitation Status: Resuscitation Status FULL:Full Resuscitation MAR Reviewed: Yes Vital Signs & Weight: Vital Signs (12 hours) Temp Pulse Resp BP BP BP Pulse Ox 10/30/17 08:34 90 180/109 H 10/30/17 08:33 180/109 H 10/30/17 08:00 98.2 F 90 18 180/109 H 180/109 H 97 10/30/17 07:47 97 10/30/17 06:05 186/121 H 10/30/17 05:13 191/113 H 10/30/17 04:00 98.1 F 92 20 191/113 H 93 L 10/29/17 23:05 169/106 H Weight Admit Weight 136 lb Weight 136 lb 7.458 oz Most Recent Monitor Data Heart Rate from ECG 89 NIBP 154/94 NIBP BP-Mean 114 Respiration from ECG 17 SpO2 96 I&O: 10/29/17 10/30/17 10/31/17 06:59 06:59 06:59 Intake Total 960 940 Output Total 500 Balance 460 940 Result Diagrams: 10/29/17 04:35 10/29/17 04:35 Phys Exam - Physical Examination Constitutional: NAD HEENT: PERRLA, moist MMs, sclera anicteric Neck: no JVD, supple Respiratory: no wheezing, no rales, no rhonchi Cardiovascular: RRR, no significant murmur, no rub Gastrointestinal: soft, non-tender, no distention, positive bowel sounds PD catheter Musculoskeletal: no edema, pulses present Neurological: non-focal, normal sensation, moves all 4 limbs Psychiatric: normal affect, A&O x 3 Skin: no rash, normal turgor Dx/Plan (1) Acute respiratory failure with hypoxia Code(s): J96.01 - ACUTE RESPIRATORY FAILURE WITH HYPOXIA Status: Resolved (2) Abnormal blood electrolyte level Code(s): E87.8 - OTH DISORDERS OF ELECTROLYTE AND FLUID BALANCE, NEC Status: Acute Comment: due to ESRD (3) Metabolic acidosis Code(s): E87.2 - ACIDOSIS Status: Acute Comment: due to ESRD (4) Pneumonia Code(s): J18.9 - PNEUMONIA, UNSPECIFIED ORGANISM Status: Suspected (5) Anemia of renal disease Code(s): D63.1 - ANEMIA IN CHRONIC KIDNEY DISEASE Status: Chronic (6) ESRD on peritoneal dialysis Code(s): N18.6 - END STAGE RENAL DISEASE; Z99.2 - DEPENDENCE ON RENAL DIALYSIS Status: Chronic (7) Hypertension Code(s): I10 - ESSENTIAL (PRIMARY) HYPERTENSION Status: Chronic (8) Secondary hyperparathyroidism of renal origin Code(s): N25.81 - SECONDARY HYPERPARATHYROIDISM OF RENAL ORIGIN Status: Chronic (9) Volume overload Code(s): E87.70 - FLUID OVERLOAD, UNSPECIFIED Status: Resolved (10) Noncompliance with renal dialysis Code(s): Z91.15 - PATIENT'S NONCOMPLIANCE WITH RENAL DIALYSIS Status: Chronic - Plan cont current plan of care * medication reviewed as below * symptomatic treatment * see discharge samuel. Review of Systems - Review of Systems Eyes: negative: Pain, Vision Change, Conjunctivae Inflammation, Eyelid Inflammation, Redness, Other ENT: negative: Ear Pain, Ear Discharge, Nose Pain, Nose Discharge, Nose Congestion, Mouth Pain, Mouth Swelling, Throat Pain, Throat Swelling, Other Respiratory: negative: Cough, Dry, Shortness of Breath, Hemoptysis, SOB with Excertion, Pleuritic Pain, Sputum, Wheezing Cardiovascular: negative: chest pain, palpitations, orthopnea, paroxysmal nocturnal dyspnea, edema, light headedness, other Gastrointestinal: negative: Nausea, Vomiting, Abdominal Pain, Diarrhea, Constipation, Melena, Hematochezia, Other Genitourinary: negative: Dysuria, Frequency, Incontinence, Hematuria, Retention , Other Musculoskeletal: negative: Neck Pain, Shoulder Pain, Arm Pain, Back Pain, Hand Pain, Leg Pain, Foot Pain, Other Skin: negative: Rash, Lesions, David, Bruising, Other - Medications/Allergies Allergies/Adverse Reactions: Allergies Allergy/AdvReac Type Severity Reaction Status Date / Time melon Allergy Verified 10/28/17 12:45 Medications: Current Medications Acetaminophen (Tylenol) 650 mg PO Q4H PRN PRN Reason: Headache/Fever or Pain Hydrocodone Bitart/Acetaminophen (Datto 5/325) 1 tab PO Q4H PRN PRN Reason: Moderate Pain (4-6) Al Hydroxide/Mg Hydroxide (Maalox) 30 ml PO Q6H PRN PRN Reason: Heartburn or Indigestion Last Admin: 10/27/17 21:20 Dose: 30 ml Albuterol/Ipratropium (Duoneb) 3 ml NEB Q4H PRN PRN Reason: SOB &/or Wheezing Artificial Tears (Tears Naturale) 0 drop EA EYE PRN PRN PRN Reason: Dry Eyes Calcium Carbonate (Tums) 1,000 mg PO Q4H PRN PRN Reason: Indigestion Last Admin: 10/29/17 20:18 Dose: 1,000 mg Calcium Carbonate (Tums) 1,000 mg PO TID[facility] Last Admin: 10/30/17 08:33 Dose: 1,000 mg Carvedilol (Coreg) 25 mg PO BID[facility] Last Admin: 10/30/17 08:34 Dose: 25 mg Clonidine (Catapres) 0.1 mg PO Q4H PRN PRN Reason: Systolic BP > 180 Last Admin: 10/30/17 05:13 Dose: 0.1 mg Clonidine (Catapres) 0.1 mg PO TID [facility] Last Admin: 10/30/17 08:33 Dose: 0.1 mg Epoetin Bin (Procrit) 7,500 units SC Q7D [facility] Last Admin: 10/28/17 12:20 Dose: 7,500 units Ferrous Sulfate (Feosol) 325 mg PO QAM[facility] Last Admin: 10/30/17 08:34 Dose: 325 mg Guaifenesin (Mucinex) 600 mg PO Q12HR [facility] Last Admin: 10/30/17 08:33 Dose: 600 mg Guaifenesin (Robitussin Sf) 200 mg PO Q4H PRN PRN Reason: Cough Heparin Sodium (Porcine) (Heparin) 5,000 units SC BID [facility] Last Admin: 10/30/17 08:34 Dose: 5,000 units Labetalol HCl (Normodyne) 20 mg SLOW IVP Q4H PRN PRN Reason: Systolic BP > 180 Last Admin: 10/30/17 06:05 Dose: 20 mg Levofloxacin (Levaquin) 500 mg PO Q2DAYS [facility] Last Admin: 10/29/17 13:17 Dose: 500 mg Lisinopril (Zestril) 20 mg PO DAILY [facility] Last Admin: 10/30/17 08:33 Dose: 20 mg Loperamide HCl (Imodium) 2 mg PO PRN PRN PRN Reason: Diarrhea/Loose Stools Loratadine (Claritin) 10 mg PO DAILYPRN PRN PRN Reason: Sinus Symptoms Magnesium Hydroxide (Milk Of Magnesium) 30 ml PO DAILYPRN PRN PRN Reason: Constipation Mineral Oil/White Petrolatum (Eucerin Cream) 0 gm TOP BIDPRN PRN PRN Reason: Dry Skin Nifedipine (Procardia Xl) 60 mg PO DAILY [facility] Last Admin: 10/30/17 08:34 Dose: 60 mg Ondansetron HCl (Zofran Odt) 4 mg PO Q6H PRN PRN Reason: Nausea/Vomiting Ondansetron HCl (Zofran) 4 mg IVP Q6H PRN PRN Reason: Nausea/Vomiting Last Admin: 10/28/17 08:46 Dose: 4 mg Phenol (Chloraseptic [place] 180 Ml Bot) 0 ml PO PRN PRN PRN Reason: Sore Throat Saccharomyces Boulardii (Florastor) 250 mg PO DAILY [facility] Last Admin: 10/30/17 08:34 Dose: 250 mg Senna (Senokot) 2 tab PO HSPRN PRN PRN Reason: Constipation Sevelamer Carbonate (Renvela) 800 mg PO TID-WM [facility] Last Admin: 10/30/17 08:33 Dose: 800 mg Sodium Chloride ([place] Nasal [place] 0.65%) 0 ml EA NARE QIDPRN PRN PRN Reason: Nasal Congestion Tizanidine HCl (Zanaflex) 4 mg PO BID [facility] Last Admin: 10/30/17 08:34 Dose: 4 mg Vitamin B Complex/Vit C/Folic Acid (Nephro-Ann Tablet) 1 tab PO DAILY [facility] Last Admin: 10/30/17 08:33 Dose: 1 tab Zolpidem Tartrate (Ambien) 5 mg PO HSPRN PRN PRN Reason: Insomnia Last Admin: 10/29/17 21:20 Dose: 5 mg
--- NOTE | 2017-10-30 11:15 | PRG ---
DATE OF SERVICE: 10/30/2017 NEPHROLOGY PROGRESS NOTE SUBJECTIVE: Patient was seen and examined at bedside and overnight events noted. Patient denies any shortness of breath or chest pain or palpitation. No history of nausea or vomiting or diarrhea or f ever or chills or cramps. OBJECTIVE: GENERAL: This is a well-built white male in no apparent distress. VITAL SIGNS: Temperature 98.2, pulse 90, respiratory rate 18, blood pressure 180/109. HEENT: Atraumatic, normocephalic. Oral mucosa is moist. NECK: Supple. CARDIOVASCULAR: S1, S2 heard. Rate and rhythm regular. RESPIRATORY: Clear to auscultation. GASTROINTESTINAL: Abdomen is soft. MUSCULOSKELETAL: No tenderness. No edema. DERMATOLOGIC: No skin rash. NEUROLOGIC: Alert and awake and oriented x3. No focal neurologic deficits. Moving all the extremiti es. PSYCHIATRIC: Mood and affect normal. LABORATORY DATA: No labs done today. ASSESSMENT AND PLAN: 1. End-stage renal disease. Continue on peritoneal dialysis . 2. Hyperkalemia, stable. Limit potassium . 3. Hypertension, stable. 4. Anemia. 5. Limit fluid intake and adjust blood pressure medicines and we will follow.
[2017-10-30] MEDS ORDERED: cloNIDine 0.1 MG TAB PO SCH (13:45)
[2017-10-30 13:48] VITALS: BP 188/119; TEMP 97.8
--- NOTE | 2017-10-30 17:59 | EKG ---
Test Reason : Blood Pressure : / mmHG Vent. Rate : 122 BPM Atrial Rate : 122 BPM P-R Int : 138 ms QRS Dur : 088 ms QT Int : 340 ms P-R-T Axes : 043 -01 102 degrees QTc Int : 484 ms Sinus tachycardia Possible Left atrial enlargement Abnormal ECG Confirmed by ELSA NUNEZ, DIANA ([id number]), film editor EFREN FREEMAN ([id number]) on 10/30/2017 5:59:23 PM Referred By: Confirmed By:DIANA HUNTER MD
== END 2017-10-30 14:08 | disposition home or self-care (01) | DRG 189 ==
LOC: ERS 06:09 → CCU 08:37 → T4-A 10-28 13:37
PROVIDERS: ADMIT Internal Medicine; ATTEND Internal Medicine
PROC: 3E1M39Z Irrigation of Peritoneal Cavity using Dialysate, Percutaneous Approach (ICD-10-PCS; principal; 2017-10-27)
DX: J96.01 Acute respiratory failure with hypoxia (principal); N18.6 End stage renal disease; J18.9 Pneumonia, unspecified organism; E87.2 Acidosis; I12.0 Hypertensive chronic kidney disease with stage 5 chronic kidney disease or end stage renal disease; N25.81 Secondary hyperparathyroidism of renal origin; I16.1 Hypertensive emergency; D63.1 Anemia in chronic kidney disease; Z99.2 Dependence on renal dialysis; Z91.15 Patient's noncompliance with renal dialysis; E87.5 Hyperkalemia; F17.210 Nicotine dependence, cigarettes, uncomplicated; F12.10 Cannabis abuse, uncomplicated; J96.02 Acute respiratory failure with hypercapnia
CPT/HCPCS: 36415; 71045; 71046; 80048; 80053; 80069; 82805; 83605; 84484; 85025; 85060; 87040; 87070; 87205; 89051; 90471; 90670; 90945; 93005; 94660; 94760; 96365; 96367; G0009; G0257; J0360; J1644; J1956; J2405; J2543; J3370; J7050; Q4081

== ENCOUNTER 2023-06-21 04:42 | Inpatient (IN) | payer OTHER, MEDICAID, MEDICARE ==
[2023-06-21] MEDS ORDERED: Acetaminophen 325 MG TAB PO PRN (07:45)
[2023-06-21] MEDS ORDERED: Ondansetron PF 4 MG/2 ML Vial IVP PRN (07:45)
[2023-06-21] MEDS ORDERED: Ondansetron ODT 4 MG TAB PO PRN (07:45)
[2023-06-21] MEDS ORDERED: Acetaminophen 650 MG Suppository PR PRN (07:45)
[2023-06-21] MEDS ORDERED: Ipratropium/Albuterol 3 ML NEB NEB PRN (07:47)
[2023-06-21] MEDS ORDERED: Non-Formulary Item 1 EACH (Esomeprazole Magnesium [Nexium 24hr] 20 MG Tablet.Dr) PO SCH (09:00)
[2023-06-21] MEDS ORDERED: Losartan 25 MG TAB PO SCH (09:00)
[2023-06-21 10:12] LABS: HBSAB Concentration Less than 8.00 mIU/mL; HBsAg Index 0.46 S/CO (0-0.99); Hep B Core Total Ab NONREACTIVE (NonReactive); Hep B Core Total Index 0.15 S/CO (0-0.79); Hep B Surf AB NONREACTIVE (NonReactive); Hep B Surf Ag NONREACTIVE S/CO (NonReactive); Hep C IgG Ab NONREACTIVE S/CO (NonReactive); Hep C Index 0.08 S/CO (0-0.79)
[2023-06-21] MEDS: Heparin 5,000 UNITS/ML VIAL SC SCH (10:24)
[2023-06-21] MEDS: predniSONE 20 MG TAB PO SCH (10:25)
[2023-06-21] MEDS: Pantoprazole DR 40 MG TAB PO SCH (10:25)
[2023-06-21] MEDS: Losartan 25 MG TAB PO SCH (10:25)
[2023-06-21] MEDS: Doxycycline 100 MG CAP PO SCH (10:26)
[2023-06-21] MEDS: Furosemide 40 MG (4 mL) VIAL SLOW IVP SCH (14:28)
[2023-06-21 14:40] LABS: Actual Bicarbonate (HCO3v) 25.8 mEq/L (22-28); Base Excess 2.3 mEq/L (-2.0 to +3.0); Calcium, Ionized (venous) 1.09 mmol/L (1.16-1.32); Chloride (VBG) 96 mmol/L (98-106); Hematocrit-VBG 29 % (42.0-52.0); Hemoglobin (Hb) 9.7 g/dL (13.2-17.3); Potassium (VBG) 4.27 mmol/L (3.70-5.30); Sodium 135 mmol/L (133-146); pH (venous) 7.476 (7.32-7.43)
[2023-06-21] MEDS: EPOETIN ALFA-EPBX (ESRD) 10,000 UNITS/ML VIAL SC SCH (15:22)
[2023-06-21] MEDS: hydrALAZINE 20 MG/ML VIAL SLOW IVP PRN (20:22)
[2023-06-21] MEDS: traZODone HCl 50 MG TAB PO SCH (21:12)
[2023-06-21] MEDS: Labetalol HCl 100 MG/20 ML VIAL SLOW IVP PRN (22:21)
[2023-06-22 05:25] LABS: #Basophils Less than 0.03 10x3/uL (0.0-0.2); #Eosinphils Less than 0.03 10x3/uL (0.0-0.7); %Basophils 0.1 % (0.0-1.0); %Lymphocytes 6.6 % (21.0-51.0); %Monocytes 5.6 % (0.0-10.0); %Neutrophils 87.1 % (42.0-75.0); Hematocrit 26.4 % (42.0-52.0); Hemoglobin 8.8 g/dL (14.0-18.0); Mean Corpuscular HGB CONC 33.3 g/dL (32.0-36.0); Mean Corpuscular Hemoglobin 28.3 pg (27.0-31.0); Mean Corpuscular Volume 84.9 fL (78.0-98.0); Mean Platelet Volume 11.9 fL (7.4-10.4); Platelet Count 211 10x3/uL (130-400); RBC Distribution Width 17.3 % (11.5-14.5); Red Blood Cell (RBC) Count 3.11 mill/uL (4.70-6.10)
[2023-06-22 05:51] LABS: Anion Gap 21 mmol/L (10-20); BUN (Urea Nitrogen) 39 mg/dL (8.9-20.6); Calc. Creatinine Clearance 4 mL/min (70-130); Calcium 9.5 mg/dL (7.8-10.44); Carbon Dioxide 24 mmol/L (22-29); Chloride 97 mmol/L (98-107); Estimated GFR 6; Glucose 117 mg/dL (70-105); Potassium 4.3 mmol/L (3.5-5.1); Sodium 138 mmol/L (136-145)
[2023-06-22] MEDS: Losartan 25 MG TAB PO SCH (08:36)
[2023-06-22] MEDS: NIFEdipine XL 90 MG ER.TAB PO SCH (21:55)
[2023-06-23 04:44] VITALS: TEMP 98.4
[2023-06-23 05:09] LABS: #Basophils Less than 0.03 10x3/uL (0.0-0.2); #Eosinphils Less than 0.03 10x3/uL (0.0-0.7); %Basophils 0.1 % (0.0-1.0); %Lymphocytes 10.9 % (21.0-51.0); %Monocytes 9.2 % (0.0-10.0); %Neutrophils 78.9 % (42.0-75.0); Hematocrit 26.6 % (42.0-52.0); Hemoglobin 8.8 g/dL (14.0-18.0); Mean Corpuscular HGB CONC 33.1 g/dL (32.0-36.0); Mean Corpuscular Hemoglobin 28.3 pg (27.0-31.0); Mean Corpuscular Volume 85.5 fL (78.0-98.0); Mean Platelet Volume 12.2 fL (7.4-10.4); Platelet Count 215 10x3/uL (130-400); RBC Distribution Width 17.3 % (11.5-14.5); Red Blood Cell (RBC) Count 3.11 mill/uL (4.70-6.10)
[2023-06-23 05:30] LABS: Anion Gap 20 mmol/L (10-20); BUN (Urea Nitrogen) 48 mg/dL (8.9-20.6); Calc. Creatinine Clearance 3 mL/min (70-130); Calcium 9.1 mg/dL (7.8-10.44); Carbon Dioxide 27 mmol/L (22-29); Chloride 95 mmol/L (98-107); Estimated GFR 5; Glucose 122 mg/dL (70-105); Potassium 3.8 mmol/L (3.5-5.1); Sodium 138 mmol/L (136-145)
[2023-06-23] MEDS: NIFEdipine XL 90 MG ER.TAB PO SCH (09:05)
[2023-06-23 09:08] VITALS: BP 128/83
== END 2023-06-23 11:08 | disposition home or self-care (01) | DRG 189 ==
LOC: IMCU/EMU 06:40
PROVIDERS: ADMIT Family Medicine; ATTEND Internal Medicine
DX: J96.01 Acute respiratory failure with hypoxia (principal); N18.6 End stage renal disease; J44.1 Chronic obstructive pulmonary disease with (acute) exacerbation; E87.20 Acidosis, unspecified; I12.0 Hypertensive chronic kidney disease with stage 5 chronic kidney disease or end stage renal disease; J81.1 Chronic pulmonary edema; I13.2 Hypertensive heart and chronic kidney disease with heart failure and with stage 5 chronic kidney disease, or end stage renal disease; J96.02 Acute respiratory failure with hypercapnia; D63.1 Anemia in chronic kidney disease; F17.210 Nicotine dependence, cigarettes, uncomplicated; G47.33 Obstructive sleep apnea (adult) (pediatric); F17.290 Nicotine dependence, other tobacco product, uncomplicated; Z91.018 Allergy to other foods; Z79.82 Long term (current) use of aspirin; Z79.899 Other long term (current) drug therapy; I50.9 Heart failure, unspecified; Z99.2 Dependence on renal dialysis
CPT/HCPCS: 36415; 36600; 71045; 74018; 80048; 80053; 82805; 83605; 83690; 83735; 83880; 84145; 84443; 84484; 85025; 85610; 85730; 86704; 86706; 86803; 87040; 87070; 87205; 87340; 90945; 93005; 94660; 96365; 96366; 96368; 96375; G0257; J0360; J0692; J1644; J3370; J3475; J7512; Q5105

== ENCOUNTER 2023-12-20 11:42 | Inpatient (IN) | payer OTHER, MEDICAID ==
[2023-12-20] MEDS ORDERED: Cefepime 2 GM VIAL ONE (12:44)
[2023-12-20] MEDS ORDERED: Sodium Chloride 0.9% 100 ML ONE (12:45)
[2023-12-20 13:34] LABS: #Basophils 0.03 10x3/uL (0.0-0.2); #Eosinophils Less than 0.03 10x3/uL (0.0-0.7); %Basophils 0.2 % (0.0-1.0); %Eosinophils 0.1 % (0.0-10.0); %Lymphocytes 6.8 % (21.0-51.0); %Monocytes 4.7 % (0.0-10.0); %Neutrophils 87.8 % (42.0-75.0); Hematocrit 33.1 % (42.0-52.0); Hemoglobin 11.6 g/dL (14.0-18.0); Mean Corpuscular Volume 74.2 fL (78.0-98.0); Mean Platelet Volume 10.9 fL (7.4-10.4); Platelet Count 574 10x3/uL (130-400); RBC Distribution Width 16.7 % (11.5-14.5); Red Blood Cell (RBC) Count 4.46 mill/uL (4.70-6.10)
[2023-12-20] MEDS ORDERED: Ondansetron PF 4 MG/2 ML Vial ONE (13:57)
[2023-12-20] MEDS ORDERED: Morphine 2 MG/ML VIAL ONE (13:57)
[2023-12-20 14:04] LABS: ALT (SGPT) 9 U/L (8-55); AST (SGOT) 10 U/L (5-34); Albumin 2.5 g/dL (3.5-5.0); Alkaline Phosphatase 191 U/L (40-110); Anion Gap 22 mmol/L (10-20); BUN (Urea Nitrogen) 15 mg/dL (8.9-20.6); Bilirubin, Total 0.4 mg/dL (0.2-1.2); Calc. Creatinine Clearance 0 mL/min (70-130); Calcium 9.1 mg/dL (7.8-10.44); Carbon Dioxide 23 mmol/L (22-29); Chloride 84 mmol/L (98-107); Estimated GFR 12; Globulin 5.5 g/dL (2.4-3.5); Glucose 117 mg/dL (70-105); Lipase 17 U/L (8-78); Potassium 3.3 mmol/L (3.5-5.1); Sodium 126 mmol/L (136-145)
[2023-12-20 14:10] LABS: Troponin I 0.431 ng/mL (< 0.028)
[2023-12-20 14:21] LABS: Anisocytosis SLIGHT = 6-15 cells HPF (0-5); Burr Cells SLIGHT = 2-5 cells HPF (0-1); Elliptocytes SLIGHT = 2-5 cells HPF (0-1); Microcytosis SLIGHT = 6-15 cells HPF (0-5); Platelet Adequacy Comment Platelets Increased; Polychromasia SLIGHT = 2-3 cells HPF (0-2); Schistocytes SLIGHT = 2-5 cells HPF (0-1)
[2023-12-20] MEDS ORDERED: Aspirin Chewable 81 MG TAB ONE (14:52)
[2023-12-20] MEDS ORDERED: cefTRIAXone (ROCEPHIN) 1 GM VIAL FS SCH (15:00)
[2023-12-20 16:52] LABS: INR-International Normal Ratio 1.1; PTT 28.1 sec (22.9-36.1); Prothrombin Time 13.9 sec (12.0-14.7)
[2023-12-20 17:09] LABS: Troponin I 0.454 ng/mL (< 0.028)
[2023-12-20] MEDS: Vancomycin HCl 750 MG in Sodium Chloride 0.9% 250 ML 250 ML IVPB SCH (18:51)
[2023-12-20 18:52] VITALS: BMI 17.9
[2023-12-20 19:38] LABS: Lactic Acid 1.54 mmol/L (0.5-2.2)
[2023-12-20 19:53] LABS: Critical Call Chem Troponin I RESULT DECREASING; Troponin I 0.394 ng/mL (< 0.028)
[2023-12-20] MEDS ORDERED: Cefepime 0.5 GM in Admixture Fee 1 EACH IVPB SCH (21:00)
[2023-12-20 21:51] LABS: Fluid, Glucose 437 mg/dL (Not Available); Fluid, LDH 238 U/L (Not Available); Fluid, Protein Less than 0.8 g/dL (Not Available)
[2023-12-20 22:08] LABS: RBC Count-Automated (BF) 17 /cu.mm; WBC/Nucleated-Auto (BF) 2361 /cu.mm
[2023-12-20] MEDS ORDERED: Vancomycin Dose by Levels Sliding Scale (Wt <71) FS SCH (22:15)
[2023-12-20 22:21] LABS: Body Fluid Source Dialysate Fluid; Tube # EDTA
[2023-12-20 22:22] LABS: BF Color Colorless; Clarity Hazy (Clear)
[2023-12-20] MEDS: ADMIXTURE FEE FS SCH (22:29)
[2023-12-20] MEDS: Vancomycin 500 MG VIAL (PEDI) FS SCH (22:29)
[2023-12-20] MEDS: VANCOMYCIN HCL FS SCH (22:29)
[2023-12-20] MEDS: traZODone HCl 50 MG TAB PO SCH (22:46)
[2023-12-20 22:52] LABS: BF Segmented Neutrophils 92 %; Cell Count Non Hematic 2 %; Lymphocytes 6 %
[2023-12-21] MEDS: Cefepime 1 GM in Sodium Chloride 0.9% 100 ML IVPB SCH ×2 (08:07→13:44)
[2023-12-21] MEDS ORDERED: Heparin 10,000 UNITS/ 10 ML VIAL ONE ×2 (09:11→19:05)
[2023-12-21 09:25] LABS: #Basophils 0.05 10x3/uL (0.0-0.2); %Basophils 0.5 % (0.0-1.0); %Eosinophils 0.6 % (0.0-10.0); %Lymphocytes 7.5 % (21.0-51.0); %Monocytes 7.5 % (0.0-10.0); %Neutrophils 83.5 % (42.0-75.0); Hematocrit 24.4 % (42.0-52.0); Hemoglobin 8.4 g/dL (14.0-18.0); Mean Corpuscular HGB CONC 34.4 g/dL (32.0-36.0); Mean Corpuscular Hemoglobin 26.4 pg (27.0-31.0); Mean Corpuscular Volume 76.7 fL (78.0-98.0); Platelet Count 414 10x3/uL (130-400); RBC Distribution Width 16.8 % (11.5-14.5); Red Blood Cell (RBC) Count 3.18 mill/uL (4.70-6.10)
[2023-12-21] MEDS: NIFEdipine XL 90 MG ER.TAB PO SCH (09:44)
[2023-12-21 09:45] LABS: Anion Gap 12 mmol/L (10-20); BUN (Urea Nitrogen) 19 mg/dL (8.9-20.6); Calc. Creatinine Clearance 11 mL/min (70-130); Calcium 7.7 mg/dL (7.8-10.44); Carbon Dioxide 22 mmol/L (22-29); Chloride 94 mmol/L (98-107); Estimated GFR 9; Glucose 88 mg/dL (70-105); Potassium 2.9 mmol/L (3.5-5.1); Sodium 125 mmol/L (136-145)
[2023-12-21 10:26] LABS: HBSAB Concentration Less than 8.00 mIU/mL; HBsAg Index 0.29 S/CO (0-0.99); Hep B Core Total Ab NONREACTIVE (NonReactive); Hep B Core Total Index 0.09 S/CO (0-0.79); Hep B Surf AB NONREACTIVE (NonReactive); Hep B Surf Ag NONREACTIVE S/CO (NonReactive); Hep C IgG Ab NONREACTIVE S/CO (NonReactive); Hep C Index 0.08 S/CO (0-0.79)
[2023-12-21 11:07] VITALS: BMI 18.6
[2023-12-21] MEDS ORDERED: Vancomycin Hemodialysis Sliding Scale FS SCH (12:30)
[2023-12-21 15:15] LABS: Vancomycin, Random 15.2 ug/mL (See Comment)
[2023-12-21] MEDS: EPOETIN ALFA-EPBX (ESRD) 10,000 UNITS/ML VIAL SC SCH (16:38)
[2023-12-21] MEDS ORDERED: EPINEPHrine 1 MG/ML VIAL ONE (19:05)
[2023-12-21] MEDS ORDERED: Lidocaine 2% PF 5 ML VIAL ONE (19:05)
[2023-12-21] MEDS ORDERED: Bupivacaine 0.25% HCL 30 ML VIAL ONE (19:05)
[2023-12-21] MEDS ORDERED: PROPOFOL 20 ML ONE (19:10)
[2023-12-21] MEDS ORDERED: fentaNYL PF 100 MCG/2 ML SYRINGE ONE (19:10)
[2023-12-21] MEDS ORDERED: Ondansetron PF 4 MG/2 ML Vial ONE (19:10)
[2023-12-21] MEDS ORDERED: Lidocaine 1% PF 5 ML VIAL ONE (19:10)
[2023-12-21] MEDS ORDERED: PHENYLEPHRINE-NS 100 MCG/ML 10 ML SYRINGE ONE ×2 (19:30→20:05)
[2023-12-21] MEDS ORDERED: Albumin 5% 250 ML ONE (20:19)
[2023-12-22] MEDS: Vancomycin HCl 500 MG in Sodium Chloride 0.9% 100 ML IVPB SCH ×2 (06:43→16:02)
[2023-12-22 07:37] LABS: Vancomycin, Trough 15.9 ug/mL
[2023-12-22 09:34] LABS: Anion Gap 10 mmol/L (10-20); BUN (Urea Nitrogen) 5 mg/dL (8.9-20.6); Calc. Creatinine Clearance 27 mL/min (70-130); Calcium 8.1 mg/dL (7.8-10.44); Carbon Dioxide 28 mmol/L (22-29); Chloride 101 mmol/L (98-107); Estimated GFR 28; Glucose 94 mg/dL (70-105); Potassium 3.3 mmol/L (3.5-5.1); Sodium 136 mmol/L (136-145)
[2023-12-22 09:53] LABS: #Basophils 0.05 10x3/uL (0.0-0.2); #Eosinophils Less than 0.03 10x3/uL (0.0-0.7); %Basophils 0.5 % (0.0-1.0); %Eosinophils 0.2 % (0.0-10.0); %Lymphocytes 6.7 % (21.0-51.0); %Neutrophils 81.9 % (42.0-75.0); Hematocrit 23.8 % (42.0-52.0); Hemoglobin 8.3 g/dL (14.0-18.0); Mean Corpuscular HGB CONC 34.9 g/dL (32.0-36.0); Mean Corpuscular Hemoglobin 26.3 pg (27.0-31.0); Mean Corpuscular Volume 75.6 fL (78.0-98.0); Mean Platelet Volume 10.3 fL (7.4-10.4); Platelet Count 389 10x3/uL (130-400); Red Blood Cell (RBC) Count 3.15 mill/uL (4.70-6.10)
[2023-12-23] MEDS: Calcium Carbonate 500 MG ChewTAB PO SCH (02:48)
[2023-12-23] MEDS: Docusate 100 MG CAP PO PRN (02:48)
[2023-12-23 07:13] LABS: Vancomycin, Trough 27.6 ug/mL
[2023-12-23] MEDS: Ondansetron PF 4 MG/2 ML Vial IVP PRN (07:45)
[2023-12-23 08:13] LABS: #Basophils 0.06 10x3/uL (0.0-0.2); %Basophils 0.5 % (0.0-1.0); %Eosinophils 0.9 % (0.0-10.0); %Monocytes 8.9 % (0.0-10.0); %Neutrophils 75.9 % (42.0-75.0); Hematocrit 25.6 % (42.0-52.0); Hemoglobin 8.7 g/dL (14.0-18.0); Mean Corpuscular Hemoglobin 26.5 pg (27.0-31.0); Mean Platelet Volume 10.3 fL (7.4-10.4); Platelet Count 414 10x3/uL (130-400); RBC Distribution Width 17.3 % (11.5-14.5); Red Blood Cell (RBC) Count 3.28 mill/uL (4.70-6.10)
[2023-12-23 08:41] LABS: Anion Gap 12 mmol/L (10-20); BUN (Urea Nitrogen) 17 mg/dL (8.9-20.6); Calc. Creatinine Clearance 13 mL/min (70-130); Calcium 7.9 mg/dL (7.8-10.44); Carbon Dioxide 28 mmol/L (22-29); Chloride 95 mmol/L (98-107); Estimated GFR 12; Glucose 101 mg/dL (70-105); Potassium 3.3 mmol/L (3.5-5.1); Sodium 132 mmol/L (136-145)
[2023-12-23] MEDS ORDERED: Heparin 10,000 UNITS/ 10 ML VIAL ONE (08:47)
[2023-12-23] MEDS ORDERED: Bisacodyl 10 MG SUPP PR PRN (09:35)
[2023-12-23] MEDS: Sucralfate 1 GM TAB PO SCH (13:03)
[2023-12-23] MEDS: Pantoprazole DR 40 MG TAB PO SCH (13:32)
[2023-12-23] MEDS: Polyethylene Glycol 3350 17 GM Packet PO SCH (13:32)
[2023-12-23] MEDS: Potassium Chloride 20 MEQ TAB PO SCH (13:32)
[2023-12-23] MEDS: Losartan 25 MG TAB PO SCH (13:32)
[2023-12-23] MEDS: NIFEdipine XL 30 MG ER.TAB PO SCH (13:32)
[2023-12-23 14:31] LABS: Anion Gap 10 mmol/L (10-20); BUN (Urea Nitrogen) 5 mg/dL (8.9-20.6); Calc. Creatinine Clearance 33 mL/min (70-130); Calcium 8.4 mg/dL (7.8-10.44); Carbon Dioxide 30 mmol/L (22-29); Chloride 99 mmol/L (98-107); Estimated GFR 36; Glucose 116 mg/dL (70-105); Magnesium 1.6 mg/dL (1.6-2.6); Potassium 3.5 mmol/L (3.5-5.1); Sodium 135 mmol/L (136-145)
[2023-12-23] MEDS: Senokot S 8.6-50 MG TAB PO SCH (20:05)
[2023-12-24] MEDS: Lidocaine 2% Viscous Solution 20 ML, Aluminum & Magnesium Hydroxide 30 ML, Donnatal Eli... SSW SCH (01:08)
[2023-12-24 07:30] VITALS: TEMP 98.2
[2023-12-24] MEDS: Pantoprazole DR 40 MG TAB PO SCH (07:33)
[2023-12-24 11:28] VITALS: BP 128/78
== END 2023-12-24 13:43 | disposition home or self-care (01) | DRG 907 ==
LOC: ERS 11:42 → ERHOLD 15:00 → 2NO 18:48 → UNDODISIN 12-21 09:10
PROVIDERS: ADMIT Hospitalist; ATTEND Internal Medicine
PROC: 3E03329 Introduction of Other Anti-infective into Peripheral Vein, Percutaneous Approach (ICD-10-PCS; principal; 2023-12-20)
PROC: 0JH63XZ Insertion of Tunneled Vascular Access Device into Chest Subcutaneous Tissue and Fascia, Percutaneous Approach (ICD-10-PCS; 2023-12-21)
PROC: 02HV33Z Insertion of Infusion Device into Superior Vena Cava, Percutaneous Approach (ICD-10-PCS; 2023-12-21)
PROC: B518ZZA Fluoroscopy of Superior Vena Cava, Guidance (ICD-10-PCS; 2023-12-21)
PROC: 0WPG03Z Removal of Infusion Device from Peritoneal Cavity, Open Approach (ICD-10-PCS; 2023-12-21)
DX: T85.71XA Infection and inflammatory reaction due to peritoneal dialysis catheter, initial encounter (principal); A41.9 Sepsis, unspecified organism; I21.A1 Myocardial infarction type 2; K65.2 Spontaneous bacterial peritonitis; N18.6 End stage renal disease; R65.20 Severe sepsis without septic shock; I12.0 Hypertensive chronic kidney disease with stage 5 chronic kidney disease or end stage renal disease; E87.1 Hypo-osmolality and hyponatremia; F41.9 Anxiety disorder, unspecified; I25.10 Atherosclerotic heart disease of native coronary artery without angina pectoris; D63.1 Anemia in chronic kidney disease; E87.6 Hypokalemia; K59.00 Constipation, unspecified; Z99.2 Dependence on renal dialysis; Z79.899 Other long term (current) drug therapy; Z91.158 Patient's noncompliance with renal dialysis for other reason; Z98.890 Other specified postprocedural states; Z90.89 Acquired absence of other organs; Y82.8 Other medical devices associated with adverse incidents
CPT/HCPCS: 36415; 36416; 71045; 74176; 80048; 80053; 80202; 82945; 83605; 83615; 83690; 83735; 83880; 84157; 84443; 84484; 85025; 85060; 85610; 85730; 86704; 86706; 86803; 87040; 87070; 87077; 87186; 87205; 87340; 89051; 93005; 93306; 96365; 96367; 96375; C1752; J0171; J0665; J0692; J1644; J2272; J2405; J2704; J3370; J7050; P9045; Q5105

== ENCOUNTER 2024-03-11 09:48 | Inpatient (IN) | payer MEDICARE, OTHER ==
[2024-03-11 11:00] LABS: #Basophils 0.11 10x3/uL (0.0-0.2); %Basophils 1.9 % (0.0-1.0); %Eosinophils 2.8 % (0.0-10.0); %Neutrophils 63.9 % (42.0-75.0); Hematocrit 32.9 % (42.0-52.0); Hemoglobin 10.2 g/dL (14.0-18.0); Mean Corpuscular Hemoglobin 23.9 pg (27.0-31.0); Mean Corpuscular Volume 77.2 fL (78.0-98.0); Mean Platelet Volume 10.1 fL (7.4-10.4); Platelet Count 387 10x3/uL (130-400); Red Blood Cell (RBC) Count 4.26 mill/uL (4.70-6.10)
[2024-03-11 11:21] LABS: ALT (SGPT) Less than 7 U/L (Less than 45); AST (SGOT) 12 U/L (11-34); Albumin 2.6 g/dL (3.1-4.5); Alkaline Phosphatase 90 U/L (40-110); Anion Gap 21 mmol/L (10-20); BUN (Urea Nitrogen) 29 mg/dL (8.9-20.6); Bilirubin, Total 0.2 mg/dL (0.3-1.2); Calc. Creatinine Clearance 0 mL/min (70-130); Calcium 8.8 mg/dL (7.8-10.44); Carbon Dioxide 19 mmol/L (22-29); Chloride 96 mmol/L (98-107); Estimated GFR 6; Globulin 4.9 g/dL (2.4-3.5); Glucose 84 mg/dL (70-105); Lipase 32 U/L (8-78); Potassium 3.3 mmol/L (3.5-5.1); Protein, Total 7.5 g/dL (6.0-8.3); Sodium 133 mmol/L (136-145)
[2024-03-11] MEDS ORDERED: fentaNYL 50 mcg/mL 1 mL Vial ONE (11:21)
[2024-03-11 11:33] LABS: INR-International Normal Ratio 1.1; PTT 36.4 sec (22.9-36.1)
[2024-03-11 11:38] LABS: Troponin I 0.052 ng/mL (< 0.028)
[2024-03-11] MEDS ORDERED: Iopamidol-370 76% 500 ML MDV (1 ML CHARGE) ONE (13:54)
[2024-03-11] MEDS ORDERED: Calcium Carbonate 500 MG ChewTAB PO PRN (14:57)
[2024-03-11] MEDS ORDERED: Ondansetron ODT 4 MG TAB PO PRN (14:57)
[2024-03-11 16:12] LABS: Troponin I 0.051 ng/mL (< 0.028)
[2024-03-11 16:15] VITALS: BMI 19.1
[2024-03-11] MEDS: Acetaminophen 325 MG TAB PO SCH (16:20)
[2024-03-11] MEDS: Potassium Chloride 20 MEQ TAB PO SCH (16:21)
[2024-03-11] MEDS: Heparin 5,000 UNITS/ML VIAL SC SCH (16:22)
[2024-03-11] MEDS: traZODone HCl 50 MG TAB PO SCH (20:39)
[2024-03-11] MEDS: Carvedilol 25 MG TAB PO SCH (20:39)
[2024-03-11] MEDS: fentaNYL 50 mcg/mL 1 mL Vial SLOW IVP SCH (22:29)
[2024-03-12 00:04] LABS: HBSAB Concentration 10.33 mIU/mL; Hep B Surf AB GRAYZONE (NonReactive)
[2024-03-12 04:00] LABS: HBsAg Index 0.29 S/CO (0-0.99); Hep B Surf Ag NONREACTIVE S/CO (NonReactive)
[2024-03-12 04:01] LABS: Hep B Core Total Ab NONREACTIVE (NonReactive); Hep B Core Total Index 0.12 S/CO (0-0.79); Hep C IgG Ab NONREACTIVE S/CO (NonReactive); Hep C Index 0.08 S/CO (0-0.79)
[2024-03-12 05:56] LABS: #Basophils 0.07 10x3/uL (0.0-0.2); %Basophils 1.4 % (0.0-1.0); %Eosinophils 4.5 % (0.0-10.0); %Lymphocytes 21.9 % (21.0-51.0); %Monocytes 15.8 % (0.0-10.0); %Neutrophils 56.2 % (42.0-75.0); Hematocrit 30.9 % (42.0-52.0); Hemoglobin 9.7 g/dL (14.0-18.0); Mean Corpuscular HGB CONC 31.4 g/dL (32.0-36.0); Mean Corpuscular Hemoglobin 23.9 pg (27.0-31.0); Mean Corpuscular Volume 76.1 fL (78.0-98.0); Mean Platelet Volume 9.9 fL (7.4-10.4); Platelet Count 353 10x3/uL (130-400); RBC Distribution Width 18.9 % (11.5-14.5); Red Blood Cell (RBC) Count 4.06 mill/uL (4.70-6.10)
[2024-03-12 06:18] LABS: ALT (SGPT) Less than 7 U/L (Less than 45); AST (SGOT) 11 U/L (11-34); Albumin 2.4 g/dL (3.1-4.5); Alkaline Phosphatase 78 U/L (40-110); Anion Gap 17 mmol/L (10-20); BUN (Urea Nitrogen) 32 mg/dL (8.9-20.6); Bilirubin, Total 0.1 mg/dL (0.3-1.2); Calc. Creatinine Clearance 7 mL/min (70-130); Calcium 8.9 mg/dL (7.8-10.44); Carbon Dioxide 21 mmol/L (22-29); Estimated GFR 5; Globulin 4.1 g/dL (2.4-3.5); Glucose 81 mg/dL (70-105); Potassium 3.8 mmol/L (3.5-5.1); Protein, Total 6.5 g/dL (6.0-8.3)
[2024-03-12 07:04] LABS: Chloride 95 mmol/L (98-107); Sodium 129 mmol/L (136-145)
[2024-03-12] MEDS: NIFEdipine XL 30 MG ER.TAB PO SCH (08:31)
[2024-03-12] MEDS: Losartan 25 MG TAB PO SCH (08:31)
[2024-03-12] MEDS: Morphine 2 MG/ML VIAL SLOW IVP SCH (10:00)
[2024-03-12] MEDS ORDERED: Sodium Bicarbonate 2.5 MEQ/5 ML SDV ONE (11:50)
[2024-03-12] MEDS ORDERED: Lidocaine 1% PF 5 ML VIAL ONE (11:50)
[2024-03-12 13:01] LABS: Fluid, Protein 3.3 g/dL (Not Available)
[2024-03-12 13:10] LABS: RBC Count-Automated (BF) 58672 /cu.mm; WBC/Nucleated-Auto (BF) 4917 /cu.mm
[2024-03-12 13:38] LABS: Body Fluid Source Peritoneal Fluid; Tube # EDTA
[2024-03-12 13:39] LABS: BF Color Red; Clarity Cloudy/Turbid (Clear)
[2024-03-12 13:42] LABS: BF Segmented Neutrophils 0 %; Cell Count Non Hematic 12 %; Eosinophils 0 %; Lymphocytes 88 %
[2024-03-12 15:10] LABS: Anion Gap 20 mmol/L (10-20); BUN (Urea Nitrogen) 34 mg/dL (8.9-20.6); Calc. Creatinine Clearance 6 mL/min (70-130); Calcium 8.6 mg/dL (7.8-10.44); Carbon Dioxide 19 mmol/L (22-29); Chloride 95 mmol/L (98-107); Estimated GFR 5; Glucose 108 mg/dL (70-105); Sodium 130 mmol/L (136-145)
[2024-03-12] MEDS: Albumin 5% 12.5 GM (250 mL) BOT IVPB PRN (17:55)
[2024-03-12 19:28] LABS: Potassium 3.7 mmol/L (3.5-5.1); Sodium 130 mmol/L (136-145)
[2024-03-12] MEDS ORDERED: HYOSCYAMINE 0.375 MG PO SCH (19:45)
[2024-03-12] MEDS: Dicyclomine 10 MG CAP PO SCH (21:00)
[2024-03-12] MEDS: Acetaminophen 500 MG TAB PO SCH (21:00)
[2024-03-13 08:46] LABS: #Basophils 0.07 10x3/uL (0.0-0.2); %Basophils 1.2 % (0.0-1.0); %Eosinophils 4.2 % (0.0-10.0); %Monocytes 13.9 % (0.0-10.0); %Neutrophils 61.2 % (42.0-75.0); Hemoglobin 8.5 g/dL (14.0-18.0); Mean Corpuscular HGB CONC 31.5 g/dL (32.0-36.0); Mean Corpuscular Volume 76.3 fL (78.0-98.0); Mean Platelet Volume 10.1 fL (7.4-10.4); Platelet Count 388 10x3/uL (130-400); RBC Distribution Width 18.6 % (11.5-14.5); Red Blood Cell (RBC) Count 3.54 mill/uL (4.70-6.10)
[2024-03-13 09:13] LABS: ALT (SGPT) Less than 7 U/L (Less than 45); AST (SGOT) 12 U/L (11-34); Albumin 2.2 g/dL (3.1-4.5); Alkaline Phosphatase 72 U/L (40-110); Anion Gap 18 mmol/L (10-20); BUN (Urea Nitrogen) 43 mg/dL (8.9-20.6); Bilirubin, Total 0.1 mg/dL (0.3-1.2); Calc. Creatinine Clearance 6 mL/min (70-130); Calcium 8.5 mg/dL (7.8-10.44); Carbon Dioxide 19 mmol/L (22-29); Chloride 98 mmol/L (98-107); Estimated GFR 4; Globulin 3.6 g/dL (2.4-3.5); Glucose 81 mg/dL (70-105); Iron 22 ug/dL (65-175); Iron Binding Capacity, Total 60 mcg/dL (261-462); Potassium 3.7 mmol/L (3.5-5.1); Protein, Total 5.8 g/dL (6.0-8.3); Sodium 131 mmol/L (136-145)
[2024-03-13 09:36] LABS: Ferritin 1306.27 ng/mL (22-322)
[2024-03-13] MEDS ORDERED: Heparin 10,000 UNITS/ 10 ML VIAL ONE (09:51)
[2024-03-13 11:26] LABS: Campy jejuni + coli by PCR Negative (Negative); STEC Shiga Toxin 1+2 Negative (Negative); Salmonella spp. by PCR Negative (Negative); Shigella spp + EIEC by PCR Negative (Negative)
[2024-03-13 16:34] LABS: Reference Lab Name LABCORP
[2024-03-13] MEDS: EPOETIN ALFA-EPBX (ESRD) 10,000 UNITS/ML VIAL IVP SCH (17:20)
[2024-03-13] MEDS: Simethicone Chewable 80 MG TAB PO PRN (21:05)
[2024-03-13] MEDS: Dicyclomine 10 MG CAP PO SCH (23:19)
[2024-03-14] MEDS: Lidocaine 4% Patch TD SCH ×2 (01:59→09:01)
[2024-03-14 05:41] LABS: #Basophils 0.11 10x3/uL (0.0-0.2); %Basophils 1.5 % (0.0-1.0); %Eosinophils 2.3 % (0.0-10.0); %Monocytes 14.7 % (0.0-10.0); %Neutrophils 63.3 % (42.0-75.0); Hemoglobin 9.4 g/dL (14.0-18.0); Mean Corpuscular HGB CONC 31.3 g/dL (32.0-36.0); Mean Corpuscular Hemoglobin 23.9 pg (27.0-31.0); Mean Corpuscular Volume 76.1 fL (78.0-98.0); Mean Platelet Volume 10.3 fL (7.4-10.4); Platelet Count 363 10x3/uL (130-400); RBC Distribution Width 18.6 % (11.5-14.5); Red Blood Cell (RBC) Count 3.94 mill/uL (4.70-6.10)
[2024-03-14 06:01] LABS: ALT (SGPT) Less than 7 U/L (Less than 45); AST (SGOT) 19 U/L (11-34); Albumin 2.3 g/dL (3.1-4.5); Alkaline Phosphatase 81 U/L (40-110); Anion Gap 15 mmol/L (10-20); BUN (Urea Nitrogen) 23 mg/dL (8.9-20.6); Bilirubin, Total 0.1 mg/dL (0.3-1.2); Calc. Creatinine Clearance 9 mL/min (70-130); Calcium 9.1 mg/dL (7.8-10.44); Carbon Dioxide 21 mmol/L (22-29); Chloride 99 mmol/L (98-107); Estimated GFR 8; Globulin 4.1 g/dL (2.4-3.5); Glucose 92 mg/dL (70-105); Potassium 3.9 mmol/L (3.5-5.1); Protein, Total 6.4 g/dL (6.0-8.3); Sodium 131 mmol/L (136-145)
[2024-03-14 10:24] VITALS: BMI 19.1
[2024-03-14] MEDS: LIDOCAINE Patch Removal TOP SCH (21:15)
[2024-03-15 05:43] LABS: %Basophils 1.3 % (0.0-1.0); %Eosinophils 4.8 % (0.0-10.0); %Lymphocytes 17.9 % (21.0-51.0); %Monocytes 14.5 % (0.0-10.0); %Neutrophils 60.6 % (42.0-75.0); Hematocrit 28.7 % (42.0-52.0); Hemoglobin 9.2 g/dL (14.0-18.0); Mean Corpuscular HGB CONC 32.1 g/dL (32.0-36.0); Mean Corpuscular Volume 74.9 fL (78.0-98.0); Mean Platelet Volume 10.7 fL (7.4-10.4); Platelet Count 428 10x3/uL (130-400); Red Blood Cell (RBC) Count 3.83 mill/uL (4.70-6.10)
[2024-03-15 06:02] LABS: ALT (SGPT) Less than 7 U/L (Less than 45); AST (SGOT) 12 U/L (11-34); Albumin 2.3 g/dL (3.1-4.5); Alkaline Phosphatase 79 U/L (40-110); Anion Gap 16 mmol/L (10-20); BUN (Urea Nitrogen) 35 mg/dL (8.9-20.6); Bilirubin, Total 0.1 mg/dL (0.3-1.2); Calc. Creatinine Clearance 8 mL/min (70-130); Calcium 9.1 mg/dL (7.8-10.44); Carbon Dioxide 18 mmol/L (22-29); Chloride 99 mmol/L (98-107); Estimated GFR 6; Globulin 3.9 g/dL (2.4-3.5); Glucose 86 mg/dL (70-105); Potassium 3.7 mmol/L (3.5-5.1); Protein, Total 6.2 g/dL (6.0-8.3); Sodium 129 mmol/L (136-145)
[2024-03-15 07:39] LABS: Adenovirus F 40-41 Not Detected (Not Detected); Astrovirus Not Detected (Not Detected); C. difficile toxin A+B DETECTED (Not Detected); Campylobacter by PCR Not Detected (Not Detected); Cryptosporidium Not Detected (Not Detected); Cyclospora cayetanensis Not Detected (Not Detected); Entamoeba histolytica Not Detected (Not Detected); Enteroaggregative E. coli Not Detected (Not Detected); Enteropathogenic E. coli Not Detected (Not Detected); Enterotoxigenic E. coli Not Detected (Not Detected); Giardia lamblia Not Detected (Not Detected); Norovirus GI-GII DETECTED (Not Detected); Plesiomonas shigelloides Not Detected (Not Detected); Rotavirus A Not Detected (Not Detected); Salmonella Not Detected (Not Detected); Sapovirus Not Detected (Not Detected); Shiga-toxin-producing E coli Not Detected (Not Detected); Shigella/Enteroinvasive E coli Not Detected (Not Detected); Vibrio Not Detected (Not Detected); Vibrio cholerae Not Detected (Not Detected); Yersinia enterocolitica DETECTED (Not Detected)
[2024-03-15] MEDS ORDERED: Vancomycin HCl 125 MG/5 ML (BATCHED) UDCUP PO SCH (09:00)
[2024-03-15] MEDS ORDERED: Heparin 10,000 UNITS/ 10 ML VIAL ONE (09:58)
[2024-03-15 11:59] LABS: EliA Celiac New Method **** NEW METHOD ****; t-Transglutaminase (tTG) IgA 0.6 EliAU/mL (<7 Negative)
[2024-03-15] MEDS: Vancomycin HCl 125 MG Capsule PO SCH (12:53)
[2024-03-15 16:37] LABS: Fatty Acid Droplets Normal (.); Neutral Fats And/Or Soaps Normal (.)
[2024-03-15] MEDS: Ciprofloxacin Lactate/D5W 400 MG in Premix 1 BAG IVPB SCH (17:11)
[2024-03-16] MEDS: FLU (Fluarix Triv) TS24-25(6MOS UP)/PF 45 MCG/0.5 ML Syringe IM ONE (08:56)
[2024-03-16 10:32] LABS: #Basophils 0.08 10x3/uL (0.0-0.2); %Basophils 1.2 % (0.0-1.0); %Eosinophils 4.2 % (0.0-10.0); %Lymphocytes 15.2 % (21.0-51.0); %Monocytes 12.7 % (0.0-10.0); %Neutrophils 65.8 % (42.0-75.0); Hemoglobin 8.7 g/dL (14.0-18.0); Mean Corpuscular Hemoglobin 23.4 pg (27.0-31.0); Mean Platelet Volume 10.1 fL (7.4-10.4); Platelet Count 440 10x3/uL (130-400); RBC Distribution Width 19.3 % (11.5-14.5); Red Blood Cell (RBC) Count 3.72 mill/uL (4.70-6.10)
[2024-03-16 10:34] LABS: ALT (SGPT) Less than 7 U/L (Less than 45); AST (SGOT) 14 U/L (11-34); Albumin 2.2 g/dL (3.1-4.5); Alkaline Phosphatase 90 U/L (40-110); Anion Gap 15 mmol/L (10-20); BUN (Urea Nitrogen) 25 mg/dL (8.9-20.6); Bilirubin, Total 0.1 mg/dL (0.3-1.2); Calc. Creatinine Clearance 11 mL/min (70-130); Calcium 9.1 mg/dL (7.8-10.44); Carbon Dioxide 20 mmol/L (22-29); Chloride 99 mmol/L (98-107); Estimated GFR 9; Globulin 3.9 g/dL (2.4-3.5); Glucose 126 mg/dL (70-105); Potassium 3.4 mmol/L (3.5-5.1); Protein, Total 6.1 g/dL (6.0-8.3); Sodium 131 mmol/L (136-145)
[2024-03-16 18:47] LABS: HIV (1/2) Antibody/Antigen NonReactive (NonReactive); HIV 1/2 INDEX 0.05 S/CO (<1.00)
[2024-03-17 07:10] LABS: #Basophils 0.08 10x3/uL (0.0-0.2); %Basophils 1.2 % (0.0-1.0); %Eosinophils 4.3 % (0.0-10.0); %Lymphocytes 16.9 % (21.0-51.0); %Monocytes 15.7 % (0.0-10.0); %Neutrophils 61.3 % (42.0-75.0); Hematocrit 26.4 % (42.0-52.0); Hemoglobin 8.1 g/dL (14.0-18.0); Mean Corpuscular HGB CONC 30.7 g/dL (32.0-36.0); Mean Corpuscular Volume 78.1 fL (78.0-98.0); Mean Platelet Volume 10.6 fL (7.4-10.4); Platelet Count 425 10x3/uL (130-400); RBC Distribution Width 19.4 % (11.5-14.5); Red Blood Cell (RBC) Count 3.38 mill/uL (4.70-6.10)
[2024-03-17 07:26] LABS: ALT (SGPT) Less than 7 U/L (Less than 45); AST (SGOT) 14 U/L (11-34); Albumin 2.1 g/dL (3.1-4.5); Alkaline Phosphatase 83 U/L (40-110); Anion Gap 18 mmol/L (10-20); BUN (Urea Nitrogen) 37 mg/dL (8.9-20.6); Bilirubin, Total 0.1 mg/dL (0.3-1.2); Calc. Creatinine Clearance 8 mL/min (70-130); Calcium 8.8 mg/dL (7.8-10.44); Carbon Dioxide 17 mmol/L (22-29); Chloride 101 mmol/L (98-107); Estimated GFR 7; Glucose 102 mg/dL (70-105); Potassium 4.2 mmol/L (3.5-5.1); Protein, Total 6.1 g/dL (6.0-8.3); Sodium 132 mmol/L (136-145)
[2024-03-17] MEDS ORDERED: Sterile Water 10 ML VIAL IVP SCH (09:15)
[2024-03-17] MEDS ORDERED: Activase 2 MG VIAL CATH SCH (09:15)
[2024-03-17] MEDS ORDERED: Heparin 10,000 UNITS/ 10 ML VIAL ONE (11:25)
[2024-03-17] MEDS: Activase 2 MG VIAL CATH SCH (14:08)
[2024-03-17] MEDS: Sterile Water 10 ML VIAL IVP SCH (14:09)
[2024-03-17 22:08] LABS: QuantiFERON-TB Gold Plus Negative (Negative)
[2024-03-18 07:18] LABS: #Basophils 0.09 10x3/uL (0.0-0.2); %Basophils 1.1 % (0.0-1.0); %Eosinophils 3.3 % (0.0-10.0); %Lymphocytes 22.1 % (21.0-51.0); %Monocytes 18.3 % (0.0-10.0); %Neutrophils 54.3 % (42.0-75.0); Hematocrit 27.2 % (42.0-52.0); Hemoglobin 8.4 g/dL (14.0-18.0); Mean Corpuscular HGB CONC 30.9 g/dL (32.0-36.0); Mean Corpuscular Hemoglobin 23.8 pg (27.0-31.0); Mean Corpuscular Volume 77.1 fL (78.0-98.0); Mean Platelet Volume 10.8 fL (7.4-10.4); Platelet Count 401 10x3/uL (130-400); RBC Distribution Width 19.6 % (11.5-14.5); Red Blood Cell (RBC) Count 3.53 mill/uL (4.70-6.10)
[2024-03-18 07:35] LABS: ALT (SGPT) Less than 7 U/L (Less than 45); AST (SGOT) 24 U/L (11-34); Albumin 2.2 g/dL (3.1-4.5); Alkaline Phosphatase 104 U/L (40-110); Anion Gap 15 mmol/L (10-20); BUN (Urea Nitrogen) 29 mg/dL (8.9-20.6); Bilirubin, Total 0.1 mg/dL (0.3-1.2); Calc. Creatinine Clearance 11 mL/min (70-130); Calcium 9.3 mg/dL (7.8-10.44); Carbon Dioxide 21 mmol/L (22-29); Chloride 101 mmol/L (98-107); Estimated GFR 9; Globulin 3.9 g/dL (2.4-3.5); Glucose 84 mg/dL (70-105); Potassium 3.8 mmol/L (3.5-5.1); Protein, Total 6.1 g/dL (6.0-8.3); Sodium 133 mmol/L (136-145)
[2024-03-18] MEDS ORDERED: Ondansetron HCl/PF 4 MG/2 ML Vial IVP PRN (14:18)
[2024-03-18] MEDS ORDERED: HYDROmorphone 2 MG/ML VIAL SLOW IVP PRN (14:18)
[2024-03-18] MEDS ORDERED: Promethazine HCl 25 MG/ML VIAL IM PRN (14:18)
[2024-03-18] MEDS ORDERED: PROPOFOL 20 ML ONE (14:22)
[2024-03-18] MEDS ORDERED: Etomidate 40 MG (20 mL) VIAL ONE (14:24)
[2024-03-18] MEDS ORDERED: fentaNYL PF 100 MCG/2 ML SYRINGE ONE (14:24)
[2024-03-18] MEDS ORDERED: EPINEPHrine 1 MG/ML VIAL ONE (14:29)
[2024-03-18] MEDS ORDERED: Heparin 10,000 UNITS/ 10 ML VIAL ONE (14:29)
[2024-03-18] MEDS ORDERED: Lidocaine 2% PF 5 ML VIAL ONE (14:29)
[2024-03-18] MEDS ORDERED: PHENYLEPHRINE-NS 100 MCG/ML 10 ML SYRINGE ONE (14:30)
[2024-03-18] MEDS ORDERED: CEFAZOLIN 2 GM in Sodium Chloride 0.9% 100 ML IVPB SCH (14:30)
[2024-03-18] MEDS ORDERED: Bupivacaine PF 0.5% 30 ML VIAL ONE (14:30)
[2024-03-18] MEDS ORDERED: Glycopyrrolate 0.2 MG/ML 5 ML SYRINGE ONE (14:59)
[2024-03-18] MEDS ORDERED: CEFAZOLIN 1 GM VIAL ONE (15:09)
[2024-03-18] MEDS ORDERED: Ondansetron PF 4 MG/2 ML Vial ONE (15:15)
[2024-03-18 18:36] VITALS: TEMP 97.4
[2024-03-18 18:37] VITALS: BP 117/78
== END 2024-03-18 18:27 | disposition home or self-care (01) | DRG 673 ==
LOC: ERS 09:48 → T4-B 15:56 → OBSVTOIN 03-13 06:58
PROVIDERS: ADMIT Family Medicine; ATTEND Family Medicine
PROC: 0JH60XZ Insertion of Tunneled Vascular Access Device into Chest Subcutaneous Tissue and Fascia, Open Approach (ICD-10-PCS; principal; 2024-03-13)
PROC: 0W9G3ZZ Drainage of Peritoneal Cavity, Percutaneous Approach (ICD-10-PCS; 2024-03-13)
PROC: 02HV33Z Insertion of Infusion Device into Superior Vena Cava, Percutaneous Approach (ICD-10-PCS; 2024-03-13)
PROC: B5181ZA Fluoroscopy of Superior Vena Cava using Low Osmolar Contrast, Guidance (ICD-10-PCS; 2024-03-13)
PROC: 0JPV0XZ Removal of Tunneled Vascular Access Device from Upper Extremity Subcutaneous Tissue and Fascia, Open Approach (ICD-10-PCS; 2024-03-13)
PROC: 05PY33Z Removal of Infusion Device from Upper Vein, Percutaneous Approach (ICD-10-PCS; 2024-03-13)
PROC: 3E033XZ Introduction of Vasopressor into Peripheral Vein, Percutaneous Approach (ICD-10-PCS; 2024-03-13)
PROC: 30233J1 Transfusion of Nonautologous Serum Albumin into Peripheral Vein, Percutaneous Approach (ICD-10-PCS; 2024-03-13)
DX: T82.49XA Other complication of vascular dialysis catheter, initial encounter (principal); E43 Unspecified severe protein-calorie malnutrition; R18.8 Other ascites; E87.1 Hypo-osmolality and hyponatremia; Q61.3 Polycystic kidney, unspecified; E87.20 Acidosis, unspecified; E27.49 Other adrenocortical insufficiency; I13.2 Hypertensive heart and chronic kidney disease with heart failure and with stage 5 chronic kidney disease, or end stage renal disease; N18.6 End stage renal disease; D63.1 Anemia in chronic kidney disease; E87.6 Hypokalemia; F41.9 Anxiety disorder, unspecified; R79.89 Other specified abnormal findings of blood chemistry; F17.290 Nicotine dependence, other tobacco product, uncomplicated; Y75.2 Prosthetic and other implants, materials and neurological devices associated with adverse incidents; K64.9 Unspecified hemorrhoids; K52.9 Noninfective gastroenteritis and colitis, unspecified; I50.9 Heart failure, unspecified; D72.829 Elevated white blood cell count, unspecified; I35.1 Nonrheumatic aortic (valve) insufficiency; D50.9 Iron deficiency anemia, unspecified; Z68.1 Body mass index [BMI] 19.9 or less, adult; Z79.899 Other long term (current) drug therapy; Z99.2 Dependence on renal dialysis
CPT/HCPCS: 36415; 49083; 71045; 74177; 80053; 82042; 82150; 82607; 82705; 82728; 83516; 83540; 83550; 83605; 83615; 83630; 83690; 83880; 84157; 84478; 84484; 85025; 85060; 85610; 85730; 86141; 86480; 86704; 86706; 86803; 87015; 87070; 87205; 87206; 87340; 87389; 87505; 87507; 88112; 88305; 89051; 93005; 93306; 96372; 96374; 96375; 96376; C1750; G0378; J0171; J0665; J0690; J0744; J1644; J2272; J2405; J2704; J3010; P9045; Q5105; Q9967